=== PATIENT | female | born 2005 | race Hispanic/Latino ===

== ENCOUNTER 2025-02-28 10:06 | Emergency (ER) | payer OTHER ==
--- OUTSIDE RECORDS SUMMARY | 2025-02-28 10:14 | XMS REPORT | Continuity of Care Document ---
Author Name Unknown Address [address] [place] [address] [facility] [place] Address [address] [place] [address] Care Team Providers Care Loom Operator Name Role Phone Rowan Berry Primary Care Physicia n Doctor Unassigned, Hooven Attending Clinician U DORI Tenorio Attending Clinician Unavailable DORI VILLARREAL Attending Clinician Unavailable YULISA AL Attending Clinician Unavailable YULISA AL Attending Clinician Unavailable Yulisa Al MD Attending Clinician [phone] Dori Villarreal MD Attending Clinician [phone], [facility] Attending Clinician Unavailable JANNY POPE Attending Clinician Unavailable Janny Pope DNP Attending Clinician [phone] RUEL GORMAN Attending Clinician UnavailRUEL Mathis Attending Clinician UnavailCaprice Rudolph PT Attending Clinician UnavailRuel Mathis MD Attending Clinician [phone] Rowan Berry Attending Clinician + DARNELL MIX Attending Clinician Unavailable DARNELL MIX Attending Clinician Unavailable Ultrasound, Ang-Mfm Attending Clinician Unavaila ble Darnell Mix DO Attending Clinician [phone] AMIRA WILLTET Attending Clinician UnavailAmira Arias MD Attending Clinician [phone] BIANCA BAUTISTA Attending Clinician Unavailrachana Bautista CNM, Bianca Couch Attending Clinician [phone] Akinmaty WHCNP, Rowan Umanzor Attending Clinician + ROWAN HOSKINS Attending Clinician Unavail able Lab, Ang-Rmchp Attending Clinician Unavailable Doctor Unassigned, Hooven Attending Clinician U sixtoailSTEPHANIE Lima Attending Clinician Unavailab claudio Varma RODEO PERFORMER, Stephanie Rogers Attending Clinician + LILIYA REYNA Attending Clinician Unavailable Visit, Ang-Rmchp Nurse Attending Clinician Unava esther Willett MD, Amira Babcock Attending Clinician + [phone] Sidney VO, Darnell Attending Clinician Unavailab claudio Trevizo MD, Francesco Attending Clinician + [phone] Gwendolyn HOPKINS, Alicia Attending Clinician + [phone] Caprice RN, Shahnaz Babcock Attending Clinician Unavailable Ilir Puckett RN Attending Clinician Unavai lable Only, Ang Db Test Attending Clinician Unavailabl e Unknown, Attending Attending Clinician Unavailab le UNKNOWN, ATTENDING Attending Clinician Unavailab claudio NJP, Unruly Thorpe Attending Clinician [phone] ERIC PURCELL Attending Clinician Unavail able Provider, [facility] Temp Attending Clinician Chloe vailable Eric Beaver Attending Clinician + EBHEIDI PICHARDO Attending Clinician Unavailable Green RODEO PERFORMER, Davey Attending Clinician [phone] Ebrahimarquita RODEO PERFORMERHeidi Attending Clinician [phone] UNRULY JAVED Attending Clinician Unavailabl e Risk, Sql-Pjrdn-Hd/High Attending Clinician Unav ailable Janeth WHSHAGUFTAP, Tressa Vega Attending Clinician +[phone] TRESSA FOWLER Attending Clinician Unavailabl e Ultrasound, Adc Mfm Attending Clinician Unavaila marianna Burt MD, Red Borrero Attending Clinician + Víctor Torrez MD, Schumacher Attending Clinician + DAVEY LOPEZ Attending Clinician Unavailable Provider, [facility] Attending Clinician Un available Nurse, [facility] Attending Clinician Un available ADYULISA HILL Admitting Clinician Unavailable Adum Yulisa HOPKINS Admitting Clinician [phone] AMIRA WILLETT Admitting Clinician UnavailAmira Arias MD Admitting Clinician [phone] Payers Payer Name Policy Type Policy Number Effective Date Expirati on Date Source [employer] [id number] 2021 00:00:00 Problems Condition Name Condition Details Condition Category Status Onset Date Resolution Date Last Treatment Date Treating Clinician Comments Source Liveborn infant, of rao , born in hospital by vaginal delivery Liveborn , of rao , born in hospital by vaginal delivery Disease Active 2023-11 00:00: 00 [facility] Obesity (BMI 30-39.9) Obesity (BMI 30-39.9) Disease Active 2023-1115 00:00: 00 [facility] Labor, precipitou s Labor, precipitou s Disease Active 2023-11 214 00:00: 00 [facility] Right sciatic nerve pain Right sciatic nerve pain Disease Active 07-26 00:00: 00 [facility] Maternal varicella, non-immune Maternal varicella, non-immune Disease Active 03-28 00:00: 00 [facility] History of pre-eclamp geeta in prior , currently History of pre-eclamp geeta in prior , currently Disease Active 03-27 00:00: 00 [facility] Anemia of mother in , antepartum Anemia of mother in , antepartum Disease Active 2020-11 2- 00:00: 00 [facility] Rubella non-immune status, antepartum Rubella non-immune status, antepartum Disease Active 03-24 00:00: 00 [facility] Normal in third trimester Normal in third trimester Disease Active 9- 00:00: 00 2024-08-30 00:00:00 2024-08-30 13:21:54 [facility] Back pain affecting Back pain affecting Disease Resolve d 2023-0 7-17 00:00: 00 2024-05-22 00:00:00 2024-05-22 11:52:28 [facility] Uncertain dates, antepartum Uncertain dates, antepartum Disease Resolve d 2023-0 5-23 00:00: 00 2024-04-25 00:00:00 2024-04-25 12:14:59 [facility] Cramping affecting , antepartum Cramping affecting , antepartum Disease Resolve d 2023-0 5-23 00:00: 00 2024-04-25 00:00:00 2024-04-25 12:14:44 [facility] Other general counseling and advice for contracept roya management Other general counseling and advice for contracept roya management Disease Resolve d 2022-0 2-10 00:00: 00 2024-03-27 00:00:00 2024-03-27 08:56:03 [facility] Encounter for initial prescripti on of contracept roya pills Encounter for initial prescripti on of contracept roya pills Disease Resolve d 2018-0 3-26 00:00: 00 2024-03-27 00:00:00 2024-03-27 08:56:02 [facility] Mother currently breast-fee ding Mother currently breast-fee ding Disease Resolve d 2021-0 4-07 00:00: 00 2022-12-16 00:00:00 2022-12-16 14:35:30 [facility] 39 weeks gestation of 39 weeks gestation of Disease Resolve d 2020-1 2-25 00:00: 00 2022-12-16 00:00:00 2022-12-16 14:35:21 [facility] Anemia of mother in , antepartum Anemia of mother in , antepartum Disease Resolve d 2020-1 2-09 00:00: 00 2022-12-16 00:00:00 2022-12-16 14:36:20 [facility] Lactating adenoma Lactating adenoma Disease Resolve d 2021-1 0-19 00:00: 00 2022-12-16 00:00:00 2022-12-16 14:35:23 Overview: Formattin g of this note might be different from the original. Breast biopsy 08/24/21F ollow up postpartu m [facility] Susceptibl e to varicella (non-immun e), currently Susceptibl e to varicella (non-immun e), currently Disease Resolve d 7-14 00:00: 00 2022-12-16 00:00:00 2022-12-16 14:36:15 [facility] High risk teen in third trimester High risk teen in third trimester Disease Resolve d 5-18 00:00: 00 2022-12-16 00:00:00 2022-12-16 14:35:28 [facility] Closed fracture of part of humerus Closed fracture of part of humerus Disease Resolve d 8- 00:00: 00 2021-02-09 00:00:00 2022-05-22 00:13:45 [facility] Allergies, Adverse Reactions, Alerts Allergy Name Allergy Type Status Severity Reaction(s) Onset Date Inactive Date Treating Clinician Comments Source NO KNOWN ALLERGIE S Drug Class Active [facility] Social History Social Habit Start Date Stop Date Quantity Comments Source ASSERTION 2024-02-07 00:00:00 [facility] intake 2024-05-30 00:00:00 2024-05-30 00:00:00 Current non-drinker of alcohol (finding) [facility] History of Social function 2024-03-27 00:00:00 2024-03-27 00:00:00 [facility] Exposure to SARS-CoV-2 (event) 2022-12-06 00:00:00 2022-12-16 13:58:00 Not sure [facility] Tobacco use and exposure 2022-12-16 00:00:00 2022-12-16 00:00:00 Smokeless tobacco non-user [facility] Tobacco Comment 2022-12-16 00:00:00 2022-12-16 00:00:00 No smoke exposure [facility] Alcohol intake 2021-10-20 00:00:00 2021-10-20 00:00:00 Current non-drinker of alcohol (finding) [facility] Sex assigned at 2003 00:00:00 2005 00:00:00 [facility] Smoking Status Start Date Stop Date Source Never smoked tobacco [facility] Medications Ordered Medication Name Filled Medication Name Start Date Stop Date Current Medication? Ordering Clinician Indication Dosage Frequency Signature (SIG) Comments Components Source vitamin w/FA tablet 2023-11 00:00: 00 Yes [id number] 102 1{tbl} Take 1 tablet by mouth in the morning. [facility] docusate 100 mg capsule 2023-11 00:00: 00 Yes [id number] 102 200mg Take 2 capsules by mouth once daily as needed for Constipati on. [facility] ferrous sulfate 325 mg (65 mg iron) tablet 2023-11 00:00: 00 Yes [id number] 102 325mg Take 1 tablet by mouth in the morning. [facility] ibuprofen 800 mg tablet 2023-11 00:00: 00 Yes [id number] 102 800mg Take 1 tablet by mouth every 8 (eight) hours as needed (pain). Take with food or milk. [facility] acetaminoph en 500 mg tablet 2023-11 00:00: 00 Yes [id number] 102 1000mg Take 2 tablets by mouth every 8 (eight) hours as needed for Pain. [facility] ibuprofen (IBU) tablet 600 mg 2023-11 10:08: 15 Yes 600mg 600 mg, Oral, Q6HPRN, Starting on 10/20/24 at 0408, Until Discontinu ed, Routine, Pain (scale 4-6), Alternate with [place] for pain scale 4-6 [facility] acetaminoph en (TYLENOL) tablet 650 mg 2023-11 06:08: 24 Yes 650mg 650 mg, Oral, Q8HPRN, Starting on 10/20/24 at 0008, Until Discontinu ed, Routine, Pain (scale 4-6), Alternate with ibuprofen for pain scale 4-6 [facility] HYDROcodone -acetaminop hen (NORCO 5) tablet 1 tablet 2023-11 06:07: 44 Yes 1{tbl} [facility] diphenhydrA MINE (BENADRYL) tablet 25 mg 2023-11 06:07: 44 Yes 25mg [facility] ondansetron (ZOFRAN (PF)) injection 4 mg 2023-11 06:07: 44 Yes 4mg [facility] simethicone (GAS RELIEF (SIMETHICON E)) chewable tablet 160 mg 2023-11 06:07: 44 Yes 160mg 160 mg, Oral, PC+HSPRN, Starting on 10/20/24 at 0007, Until Discontinu ed, Routine, Gas [facility] docusate (COLACE) capsule 200 mg 2023-11 06:07: 44 Yes 200mg 200 mg, Oral, QDAILYPRN, Starting on 10/20/24 at 0007, Until Discontinu ed, Routine, Constipati on [facility] magnesium hydroxide (MILK OF MAGNESIA) 400 mg/5 mL suspension 30 mL 2023-11 06:07: 44 Yes 30mL [facility] benzocaine- menthol (DERMOPLAST ) 20-0.5 % topical spray 2023-11 06:07: 44 Yes Topical, PRN, Starting on 10/20/24 at 0007, Until Discontinu ed, Routine, Perineum discomfort [facility] oxytocin (PITOCIN) 30 units in NS 500 mL IV infusion 2023-11 04:53: 20 10-20 05:11 :00 No 600mL/h 600 mL/hr, IV Infusion, PRN, PPH, Starting on 10/19/24 at 2253, For 1 dose, As instructed by physician at bedside. [facility] lactated ringers IV infusion 250 mL 2023-11 04:53: 20 10-20 06:17 :47 No 250mL at 999 mL/hr, 250 mL, IV Infusion, PRN - SEE INSTRUCTIO NS, Starting on 10/19/24 at 2253, Until 10/20/24 at 0017, Routine [facility] oxytocin (PITOCIN) injection 10 Units 2023-11 2-14 16:45: 00 10-20 05:13 :00 No 10U 10 Units, Intramuscu lar, ONCE, 1 dose, On 10/19/24 at 1045, STAT [facility] valACYclovi r (VALTREX) 500 mg tablet 2023-11 00:00: 00 10-20 00:00 :00 No [id number] 500mg Take 1 tablet by mouth in the morning and 1 tablet in the evening. [facility] ferrous sulfate 325 mg (65 mg iron) tablet 2023-11 0-09 00:00: 00 10-21 00:00 :00 No [id number] 325mg Take 1 tablet by mouth in the morning. [facility] aspirin 81 mg EC tablet 04-25 00:00: 00 10-20 00:00 :00 No [id number] 9100 81mg Take 1 tablet by mouth in the morning. [facility] vit no.124/iron /folic ( VITAMIN ORAL) 04-23 16:48: 26 04-23 00:00 :00 No [id number] Take by mouth. [facility] PNV 67-iron ps-folate no.1-dha (VITAFOL ULTRA) 29 mg iron- 1 mg-200 mg Cap 04-23 00:00: 00 10-21 00:00 :00 No [id number] 1{capsu le} Take 1 capsule by mouth in the morning. [facility] vit no.124/iron /folic ( VITAMIN ORAL) 03-27 08:51: 17 Yes [id number] Take by mouth. [facility] norethindro ne 0.35 mg tablet 4-07 00:00: 00 12-16 00:00 :00 No [id number] 1{tbl} Take 1 tablet by mouth daily. [facility] vitamin w/FA tablet 2020-11 2-27 00:00: 00 12-16 00:00 :00 No [id number] 1{tbl} Take 1 tablet by mouth daily. [facility] Immunizations Ordered Immunization Name Filled Immunization Name Date Status Comments Source TDAP 2024-08-30 00:00:00 Completed [facility] TDAP 2021-08-10 00:00:00 Completed [facility] TDAP 2021-08-10 00:00:00 Completed [facility] TDAP 2021-08-10 00:00:00 Completed [facility] TDAP 2021-08-10 00:00:00 Completed [facility] TDAP 2021-08-10 00:00:00 Completed [facility] HPV9 2019-01-16 00:00:00 Completed [facility] HPV9 2019-01-16 00:00:00 Completed [facility] HPV9 2019-01-16 00:00:00 Completed [facility] HPV9 2019-01-16 00:00:00 Completed HPV9 2019-01-16 00:00:00 Completed HPV9 2018-09-17 00:00:00 Completed [facility] HPV9 2018-09-17 00:00:00 Completed [facility] HPV9 2018-09-17 00:00:00 Completed [facility] HPV9 2018-09-17 00:00:00 Completed [facility] HPV9 2018-09-17 00:00:00 Completed [facility] HPV9 2018-07-17 00:00:00 Completed [facility] HPV9 2018-07-17 00:00:00 Completed [facility] HPV9 2018-07-17 00:00:00 Completed [facility] HPV9 2018-07-17 00:00:00 Completed [facility] HPV9 2018-07-17 00:00:00 Completed [facility] Influenza Virus Vaccine Quad Nasal 2015-08-31 00:00:00 Completed [facility] Influenza Virus Vaccine Quad Nasal 2015-08-31 00:00:00 Completed [facility] Influenza Virus Vaccine Quad Nasal 2015-08-31 00:00:00 Completed [facility] Influenza Virus Vaccine Quad Nasal (Flumist) 2015-08-31 00:00:00 Completed [facility] Influenza Virus Vaccine Quad Nasal (Flumist) 2015-08-31 00:00:00 Completed [facility] Meningococcal Polysaccharide (groups A, C, Y and W-135) conjugate vaccine (MCV4P) 2015-01-30 00:00:00 Completed [facility] TDAP 2015-01-30 00:00:00 Completed [facility] Meningococcal Polysaccharide (groups A, C, Y and W-135) conjugate vaccine (MCV4P) 2015-01-30 00:00:00 Completed [facility] TDAP 2015-01-30 00:00:00 Completed [facility] Meningococcal Polysaccharide (groups A, C, Y and W-135) conjugate vaccine (MCV4P) 2015-01-30 00:00:00 Completed [facility] TDAP 2015-01-30 00:00:00 Completed [facility] Meningococcal Polysaccharide (groups A, C, Y and W-135) conjugate vaccine (MCV4P) 2015-01-30 00:00:00 Completed TDAP 2015-01-30 00:00:00 Completed Meningococcal Polysaccharide (groups A, C, Y and W-135) conjugate vaccine (MCV4P) 2015-01-30 00:00:00 Completed TDAP 2015-01-30 00:00:00 Completed Pneumococcal 7 Conjugate, PCV7 (Prevnar7) 2007-08-20 00:00:00 Completed Pneumococcal 7 Conjugate, PCV7 (Prevnar7) 2007-08-20 00:00:00 Completed DTAP 2007 00:00:00 Completed [facility] Pneumococcal 13 Conjugate, PCV13 (Prevnar 13) 2007 00:00:00 Completed [facility] Polio (IPV/OPV) 2007 00:00:00 Completed [facility] Proquad (MMR/VARICELLA) 2007 00:00:00 Completed [facility] DTAP 2007 00:00:00 Completed [facility] Pneumococcal 13 Conjugate, PCV13 (Prevnar 13) 2007 00:00:00 Completed [facility] Polio (IPV/OPV) 2007 00:00:00 Completed [facility] Proquad (MMR/VARICELLA) 2007 00:00:00 Completed [facility] DTAP 2007 00:00:00 Completed [facility] Pneumococcal 13 Conjugate, PCV13 (Prevnar 13) 2007 00:00:00 Completed [facility] Polio (IPV/OPV) 2007 00:00:00 Completed [facility] Proquad (MMR/VARICELLA) 2007 00:00:00 Completed [facility] DTAP 2007 00:00:00 Completed Pneumococcal 13 Conjugate, PCV13 (Prevnar 13) 2007 00:00:00 Completed Polio (IPV/OPV) 2007 00:00:00 Completed Proquad (MMR/VARICELLA) 2007 00:00:00 Completed DTaP, Unspecified Formulation 2007 00:00:00 Completed IPV 2007 00:00:00 Completed DTAP 2007 00:00:00 Completed Pneumococcal 13 Conjugate, PCV13 (Prevnar 13) 2007 00:00:00 Completed Polio (IPV/OPV) 2007 00:00:00 Completed Proquad (MMR/VARICELLA) 2007 00:00:00 Completed DTaP, Unspecified Formulation 2007 00:00:00 Completed IPV 2007 00:00:00 Completed HEPATITIS A 2005-12-20 00:00:00 Completed [facility] HEPATITIS A 2005-12-20 00:00:00 Completed [facility] HEPATITIS A 2005-12-20 00:00:00 Completed [facility] HEPATITIS A 2005-12-20 00:00:00 Completed HEPATITIS A 2005-12-20 00:00:00 Completed HEPATITIS A 2005-06-02 00:00:00 Completed [facility] HEPATITIS A 2005-06-02 00:00:00 Completed [facility] HEPATITIS A 2005-06-02 00:00:00 Completed [facility] HEPATITIS A 2005-06-02 00:00:00 Completed HEPATITIS A 2005-06-02 00:00:00 Completed Varicella (varivax)(chicken pox) 2004-07-29 00:00:00 Completed Varicella (varivax)(chicken pox) 2004-07-29 00:00:00 Completed DTAP 2004-06-21 00:00:00 Completed [facility] HIB 4 Dose Schedule 2004-06-21 00:00:00 Completed [facility] MMR 2004-06-21 00:00:00 Completed [facility] Pneumococcal 13 Conjugate, PCV13 (Prevnar 13) 2004-06-21 00:00:00 Completed [facility] Polio (IPV/OPV) 2004-06-21 00:00:00 Completed [facility] DTAP 2004-06-21 00:00:00 Completed [facility] HIB 4 Dose Schedule 2004-06-21 00:00:00 Completed [facility] MMR 2004-06-21 00:00:00 Completed [facility] Pneumococcal 13 Conjugate, PCV13 (Prevnar 13) 2004-06-21 00:00:00 Completed [facility] Polio (IPV/OPV) 2004-06-21 00:00:00 Completed [facility] DTAP 2004-06-21 00:00:00 Completed [facility] HIB 4 Dose Schedule 2004-06-21 00:00:00 Completed [facility] MMR 2004-06-21 00:00:00 Completed [facility] Pneumococcal 13 Conjugate, PCV13 (Prevnar 13) 2004-06-21 00:00:00 Completed [facility] Polio (IPV/OPV) 2004-06-21 00:00:00 Completed [facility] DTAP 2004-06-21 00:00:00 Completed HIB 4 Dose Schedule 2004-06-21 00:00:00 Completed MMR 2004-06-21 00:00:00 Completed Pneumococcal 13 Conjugate, PCV13 (Prevnar 13) 2004-06-21 00:00:00 Completed Polio (IPV/OPV) 2004-06-21 00:00:00 Completed DTaP, Unspecified Formulation 2004-06-21 00:00:00 Completed Pneumococcal 7 Conjugate, PCV7 (Prevnar7) 2004-06-21 00:00:00 Completed IPV 2004-06-21 00:00:00 Completed DTAP 2004-06-21 00:00:00 Completed HIB 4 Dose Schedule 2004-06-21 00:00:00 Completed MMR 2004-06-21 00:00:00 Completed Pneumococcal 13 Conjugate, PCV13 (Prevnar 13) 2004-06-21 00:00:00 Completed Polio (IPV/OPV) 2004-06-21 00:00:00 Completed DTaP, Unspecified Formulation 2004-06-21 00:00:00 Completed Pneumococcal 7 Conjugate, PCV7 (Prevnar7) 2004-06-21 00:00:00 Completed IPV 2004-06-21 00:00:00 Completed DTAP 2003 00:00:00 Completed [facility] HIB 4 Dose Schedule 2003 00:00:00 Completed [facility] Hep B, Adol or Pedi Dosage 2003 00:00:00 Completed [facility] Pneumococcal 13 Conjugate, PCV13 (Prevnar 13) 2003 00:00:00 Completed [facility] Polio (IPV/OPV) 2003 00:00:00 Completed [facility] DTAP 2003 00:00:00 Completed [facility] HIB 4 Dose Schedule 2003 00:00:00 Completed [facility] Hep B, Adol or Pedi Dosage 2003 00:00:00 Completed [facility] Pneumococcal 13 Conjugate, PCV13 (Prevnar 13) 2003 00:00:00 Completed [facility] Polio (IPV/OPV) 2003 00:00:00 Completed [facility] DTAP 2003 00:00:00 Completed [facility] HIB 4 Dose Schedule 2003 00:00:00 Completed [facility] Hep B, Adol or Pedi Dosage 2003 00:00:00 Completed [facility] Pneumococcal 13 Conjugate, PCV13 (Prevnar 13) 2003 00:00:00 Completed [facility] Polio (IPV/OPV) 2003 00:00:00 Completed [facility] DTAP 2003 00:00:00 Completed HIB 4 Dose Schedule 2003 00:00:00 Completed Hep B, Adol or Pedi Dosage 2003 00:00:00 Completed Pneumococcal 13 Conjugate, PCV13 (Prevnar 13) 2003 00:00:00 Completed Polio (IPV/OPV) 2003 00:00:00 Completed DTaP, Unspecified Formulation 2003 00:00:00 Completed Pneumococcal 7 Conjugate, PCV7 (Prevnar7) 2003 00:00:00 Completed IPV 2003 00:00:00 Completed DTAP 2003 00:00:00 Completed HIB 4 Dose Schedule 2003 00:00:00 Completed Hep B, Adol or Pedi Dosage 2003 00:00:00 Completed Pneumococcal 13 Conjugate, PCV13 (Prevnar 13) 2003 00:00:00 Completed Polio (IPV/OPV) 2003 00:00:00 Completed DTaP, Unspecified Formulation 2003 00:00:00 Completed Pneumococcal 7 Conjugate, PCV7 (Prevnar7) 2003 00:00:00 Completed IPV 2003 00:00:00 Completed DTAP 2003 00:00:00 Completed [facility] HIB 4 Dose Schedule 2003 00:00:00 Completed [facility] Pneumococcal 13 Conjugate, PCV13 (Prevnar 13) 2003 00:00:00 Completed [facility] Polio (IPV/OPV) 2003 00:00:00 Completed [facility] DTAP 2003 00:00:00 Completed [facility] HIB 4 Dose Schedule 2003 00:00:00 Completed [facility] Pneumococcal 13 Conjugate, PCV13 (Prevnar 13) 2003 00:00:00 Completed [facility] Polio (IPV/OPV) 2003 00:00:00 Completed [facility] DTAP 2003 00:00:00 Completed [facility] HIB 4 Dose Schedule 2003 00:00:00 Completed [facility] Pneumococcal 13 Conjugate, PCV13 (Prevnar 13) 2003 00:00:00 Completed [facility] Polio (IPV/OPV) 2003 00:00:00 Completed [facility] DTAP 2003 00:00:00 Completed HIB 4 Dose Schedule 2003 00:00:00 Completed Pneumococcal 13 Conjugate, PCV13 (Prevnar 13) 2003 00:00:00 Completed Polio (IPV/OPV) 2003 00:00:00 Completed DTaP, Unspecified Formulation 2003 00:00:00 Completed Pneumococcal 7 Conjugate, PCV7 (Prevnar7) 2003 00:00:00 Completed IPV 2003 00:00:00 Completed DTAP 2003 00:00:00 Completed HIB 4 Dose Schedule 2003 00:00:00 Completed Pneumococcal 13 Conjugate, PCV13 (Prevnar 13) 2003 00:00:00 Completed Polio (IPV/OPV) 2003 00:00:00 Completed DTaP, Unspecified Formulation 2003 00:00:00 Completed Pneumococcal 7 Conjugate, PCV7 (Prevnar7) 2003 00:00:00 Completed IPV 2003 00:00:00 Completed DTAP 2003 00:00:00 Completed [facility] HIB 4 Dose Schedule 2003 00:00:00 Completed [facility] Hep B, Adol or Pedi Dosage 2003 00:00:00 Completed [facility] Pneumococcal 13 Conjugate, PCV13 (Prevnar 13) 2003 00:00:00 Completed [facility] Polio (IPV/OPV) 2003 00:00:00 Completed [facility] DTAP 2003 00:00:00 Completed [facility] HIB 4 Dose Schedule 2003 00:00:00 Completed [facility] Hep B, Adol or Pedi Dosage 2003 00:00:00 Completed [facility] Pneumococcal 13 Conjugate, PCV13 (Prevnar 13) 2003 00:00:00 Completed [facility] Polio (IPV/OPV) 2003 00:00:00 Completed [facility] DTAP 2003 00:00:00 Completed [facility] HIB 4 Dose Schedule 2003 00:00:00 Completed [facility] Hep B, Adol or Pedi Dosage 2003 00:00:00 Completed [facility] Pneumococcal 13 Conjugate, PCV13 (Prevnar 13) 2003 00:00:00 Completed [facility] Polio (IPV/OPV) 2003 00:00:00 Completed [facility] DTAP 2003 00:00:00 Completed [facility] HIB 4 Dose Schedule 2003 00:00:00 Completed Hep B, Adol or Pedi Dosage 2003 00:00:00 Completed Pneumococcal 13 Conjugate, PCV13 (Prevnar 13) 2003 00:00:00 Completed Polio (IPV/OPV) 2003 00:00:00 Completed DTaP, Unspecified Formulation 2003 00:00:00 Completed Pneumococcal 7 Conjugate, PCV7 (Prevnar7) 2003 00:00:00 Completed IPV 2003 00:00:00 Completed DTAP 2003 00:00:00 Completed [facility] HIB 4 Dose Schedule 2003 00:00:00 Completed Hep B, Adol or Pedi Dosage 2003 00:00:00 Completed Pneumococcal 13 Conjugate, PCV13 (Prevnar 13) 2003 00:00:00 Completed Polio (IPV/OPV) 2003 00:00:00 Completed DTaP, Unspecified Formulation 2003 00:00:00 Completed Pneumococcal 7 Conjugate, PCV7 (Prevnar7) 2003 00:00:00 Completed IPV 2003 00:00:00 Completed Hep B, Adol or Pedi Dosage 2003 00:00:00 Completed [facility] Hep B, Adol or Pedi Dosage 2003 00:00:00 Completed [facility] Hep B, Adol or Pedi Dosage 2003 00:00:00 Completed [facility] Hep B, Adol or Pedi Dosage 2003 00:00:00 Completed Hep B, Adol or Pedi Dosage 2003 00:00:00 Completed HIB 4 Dose Schedule Unknown Completed [facility] HEPATITIS A Unknown Completed [facility] Hep B, Adol or Pedi Dosage Unknown Completed [facility] Meningococcal Polysaccharide (groups A, C, Y and W-135) conjugate vaccine (MCV4P) Unknown Completed [facility] MMR Unknown Completed [facility] Pneumococcal 13 Conjugate, PCV13 (Prevnar 13) Unknown Completed [facility] Polio (IPV/OPV) Unknown Completed [facility] Proquad (MMR/VARICELLA) Unknown Completed [facility] TDAP Unknown Completed [facility] HPV9 Unknown Completed [facility] DTaP, Unspecified Formulation Unknown Completed [facility] Pneumococcal 7 Conjugate, PCV7 (Prevnar7) Unknown Completed [facility] IPV Unknown Completed [facility] Varicella (varivax)(chicken pox) Unknown Completed [facility] Influenza Virus Vaccine Quad Nasal (Flumist) Unknown Completed [facility] DTAP Unknown Completed [facility] HIB 4 Dose Schedule Unknown Completed [facility] HEPATITIS A Unknown Completed [facility] Hep B, Adol or Pedi Dosage Unknown Completed [facility] Meningococcal Polysaccharide (groups A, C, Y and W-135) conjugate vaccine (MCV4P) Unknown Completed [facility] MMR Unknown Completed [facility] Pneumococcal 13 Conjugate, PCV13 (Prevnar 13) Unknown Completed [facility] Polio (IPV/OPV) Unknown Completed [facility] Proquad (MMR/VARICELLA) Unknown Completed [facility] TDAP Unknown Completed [facility] HPV9 Unknown Completed [facility] DTaP, Unspecified Formulation Unknown Completed [facility] Pneumococcal 7 Conjugate, PCV7 (Prevnar7) Unknown Completed [facility] IPV Unknown Completed [facility] Varicella (varivax)(chicken pox) Unknown Completed [facility] Influenza Virus Vaccine Quad Nasal (Flumist) Unknown Completed [facility] DTAP Unknown Completed [facility] HIB 4 Dose Schedule Unknown Completed [facility] HEPATITIS A Unknown Completed [facility] Hep B, Adol or Pedi Dosage Unknown Completed [facility] Meningococcal Polysaccharide (groups A, C, Y and W-135) conjugate vaccine (MCV4P) Unknown Completed [facility] MMR Unknown Completed [facility] Pneumococcal 13 Conjugate, PCV13 (Prevnar 13) Unknown Completed [facility] Polio (IPV/OPV) Unknown Completed [facility] Proquad (MMR/VARICELLA) Unknown Completed [facility] TDAP Unknown Completed [facility] HPV9 Unknown Completed [facility] DTaP, Unspecified Formulation Unknown Completed [facility] Pneumococcal 7 Conjugate, PCV7 (Prevnar7) Unknown Completed [facility] IPV Unknown Completed [facility] Varicella (varivax)(chicken pox) Unknown Completed [facility] Influenza Virus Vaccine Quad Nasal (Flumist) Unknown Completed [facility] DTAP Unknown Completed [facility] HIB 4 Dose Schedule Unknown Completed [facility] HEPATITIS A Unknown Completed [facility] Hep B, Adol or Pedi Dosage Unknown Completed [facility] Meningococcal Polysaccharide (groups A, C, Y and W-135) conjugate vaccine (MCV4P) Unknown Completed [facility] MMR Unknown Completed [facility] Pneumococcal 13 Conjugate, PCV13 (Prevnar 13) Unknown Completed [facility] Polio (IPV/OPV) Unknown Completed [facility] Proquad (MMR/VARICELLA) Unknown Completed [facility] TDAP Unknown Completed [facility] HPV9 Unknown Completed [facility] DTaP, Unspecified Formulation Unknown Completed [facility] Pneumococcal 7 Conjugate, PCV7 (Prevnar7) Unknown Completed [facility] IPV Unknown Completed [facility] Varicella (varivax)(chicken pox) Unknown Completed [facility] Influenza Virus Vaccine Quad Nasal (Flumist) Unknown Completed [facility] DTAP Unknown Completed [facility] HIB 4 Dose Schedule Unknown Completed [facility] HEPATITIS A Unknown Completed [facility] Hep B, Adol or Pedi Dosage Unknown Completed [facility] Meningococcal Polysaccharide (groups A, C, Y and W-135) conjugate vaccine (MCV4P) Unknown Completed [facility] MMR Unknown Completed [facility] Pneumococcal 13 Conjugate, PCV13 (Prevnar 13) Unknown Completed [facility] Polio (IPV/OPV) Unknown Completed [facility] Proquad (MMR/VARICELLA) Unknown Completed [facility] TDAP Unknown Completed [facility] HPV9 Unknown Completed [facility] DTaP, Unspecified Formulation Unknown Completed [facility] Pneumococcal 7 Conjugate, PCV7 (Prevnar7) Unknown Completed [facility] IPV Unknown Completed [facility] Varicella (varivax)(chicken pox) Unknown Completed [facility] Influenza Virus Vaccine Quad Nasal (Flumist) Unknown Completed [facility] DTAP Unknown Completed [facility] HIB 4 Dose Schedule Unknown Completed [facility] HEPATITIS A Unknown Completed [facility] Hep B, Adol or Pedi Dosage Unknown Completed [facility] Meningococcal Polysaccharide (groups A, C, Y and W-135) conjugate vaccine (MCV4P) Unknown Completed [facility] MMR Unknown Completed [facility] Pneumococcal 13 Conjugate, PCV13 (Prevnar 13) Unknown Completed [facility] Polio (IPV/OPV) Unknown Completed [facility] Proquad (MMR/VARICELLA) Unknown Completed [facility] TDAP Unknown Completed [facility] HPV9 Unknown Completed [facility] DTaP, Unspecified Formulation Unknown Completed [facility] Pneumococcal 7 Conjugate, PCV7 (Prevnar7) Unknown Completed [facility] IPV Unknown Completed [facility] Varicella (varivax)(chicken pox) Unknown Completed [facility] Influenza Virus Vaccine Quad Nasal (Flumist) Unknown Completed [facility] DTAP Unknown Completed [facility] HIB 4 Dose Schedule Unknown Completed [facility] HEPATITIS A Unknown Completed [facility] Hep B, Adol or Pedi Dosage Unknown Completed [facility] Meningococcal Polysaccharide (groups A, C, Y and W-135) conjugate vaccine (MCV4P) Unknown Completed [facility] MMR Unknown Completed [facility] Pneumococcal 13 Conjugate, PCV13 (Prevnar 13) Unknown Completed [facility] Polio (IPV/OPV) Unknown Completed [facility] Proquad (MMR/VARICELLA) Unknown Completed [facility] TDAP Unknown Completed [facility] HPV9 Unknown Completed [facility] DTaP, Unspecified Formulation Unknown Completed [facility] Pneumococcal 7 Conjugate, PCV7 (Prevnar7) Unknown Completed [facility] IPV Unknown Completed [facility] Varicella (varivax)(chicken pox) Unknown Completed [facility] Influenza Virus Vaccine Quad Nasal (Flumist) Unknown Completed [facility] DTAP Unknown Completed [facility] HIB 4 Dose Schedule Unknown Completed [facility] HEPATITIS A Unknown Completed [facility] Hep B, Adol or Pedi Dosage Unknown Completed [facility] Meningococcal Polysaccharide (groups A, C, Y and W-135) conjugate vaccine (MCV4P) Unknown Completed [facility] MMR Unknown Completed [facility] Pneumococcal 13 Conjugate, PCV13 (Prevnar 13) Unknown Completed [facility] Polio (IPV/OPV) Unknown Completed [facility] Proquad (MMR/VARICELLA) Unknown Completed [facility] TDAP Unknown Completed [facility] HPV9 Unknown Completed [facility] DTaP, Unspecified Formulation Unknown Completed [facility] Pneumococcal 7 Conjugate, PCV7 (Prevnar7) Unknown Completed [facility] IPV Unknown Completed [facility] Varicella (varivax)(chicken pox) Unknown Completed [facility] Influenza Virus Vaccine Quad Nasal (Flumist) Unknown Completed [facility] DTAP Unknown Completed [facility] HIB 4 Dose Schedule Unknown Completed [facility] HEPATITIS A Unknown Completed [facility] Hep B, Adol or Pedi Dosage Unknown Completed [facility] Meningococcal Polysaccharide (groups A, C, Y and W-135) conjugate vaccine (MCV4P) Unknown Completed [facility] MMR Unknown Completed [facility] Pneumococcal 13 Conjugate, PCV13 (Prevnar 13) Unknown Completed [facility] Polio (IPV/OPV) Unknown Completed [facility] Proquad (MMR/VARICELLA) Unknown Completed [facility] TDAP Unknown Completed [facility] HPV9 Unknown Completed [facility] DTaP, Unspecified Formulation Unknown Completed [facility] Pneumococcal 7 Conjugate, PCV7 (Prevnar7) Unknown Completed [facility] IPV Unknown Completed [facility] Varicella (varivax)(chicken pox) Unknown Completed [facility] Influenza Virus Vaccine Quad Nasal (Flumist) Unknown Completed [facility] DTAP Unknown Completed [facility] HIB 4 Dose Schedule Unknown Completed [facility] HEPATITIS A Unknown Completed [facility] Hep B, Adol or Pedi Dosage Unknown Completed [facility] Meningococcal Polysaccharide (groups A, C, Y and W-135) conjugate vaccine (MCV4P) Unknown Completed [facility] MMR Unknown Completed [facility] Pneumococcal 13 Conjugate, PCV13 (Prevnar 13) Unknown Completed [facility] Polio (IPV/OPV) Unknown Completed [facility] Proquad (MMR/VARICELLA) Unknown Completed [facility] TDAP Unknown Completed [facility] HPV9 Unknown Completed [facility] DTaP, Unspecified Formulation Unknown Completed [facility] Pneumococcal 7 Conjugate, PCV7 (Prevnar7) Unknown Completed [facility] IPV Unknown Completed [facility] Varicella (varivax)(chicken pox) Unknown Completed [facility] Influenza Virus Vaccine Quad Nasal (Flumist) Unknown Completed [facility] DTAP Unknown Completed [facility] HIB 4 Dose Schedule Unknown Completed [facility] HEPATITIS A Unknown Completed [facility] Hep B, Adol or Pedi Dosage Unknown Completed [facility] Meningococcal Polysaccharide (groups A, C, Y and W-135) conjugate vaccine (MCV4P) Unknown Completed [facility] MMR Unknown Completed [facility] Pneumococcal 13 Conjugate, PCV13 (Prevnar 13) Unknown Completed [facility] Polio (IPV/OPV) Unknown Completed [facility] Proquad (MMR/VARICELLA) Unknown Completed [facility] TDAP Unknown Completed [facility] HPV9 Unknown Completed [facility] DTaP, Unspecified Formulation Unknown Completed [facility] Pneumococcal 7 Conjugate, PCV7 (Prevnar7) Unknown Completed [facility] IPV Unknown Completed [facility] Varicella (varivax)(chicken pox) Unknown Completed [facility] Influenza Virus Vaccine Quad Nasal (Flumist) Unknown Completed [facility] DTAP Unknown Completed [facility] HIB 4 Dose Schedule Unknown Completed [facility] HEPATITIS A Unknown Completed [facility] Hep B, Adol or Pedi Dosage Unknown Completed [facility] Meningococcal Polysaccharide (groups A, C, Y and W-135) conjugate vaccine (MCV4P) Unknown Completed [facility] MMR Unknown Completed [facility] Pneumococcal 13 Conjugate, PCV13 (Prevnar 13) Unknown Completed [facility] Polio (IPV/OPV) Unknown Completed [facility] Proquad (MMR/VARICELLA) Unknown Completed [facility] TDAP Unknown Completed [facility] HPV9 Unknown Completed [facility] DTaP, Unspecified Formulation Unknown Completed [facility] Pneumococcal 7 Conjugate, PCV7 (Prevnar7) Unknown Completed [facility] IPV Unknown Completed [facility] Varicella (varivax)(chicken pox) Unknown Completed [facility] Influenza Virus Vaccine Quad Nasal (Flumist) Unknown Completed [facility] DTAP Unknown Completed [facility] HIB 4 Dose Schedule Unknown Completed [facility] HEPATITIS A Unknown Completed [facility] Hep B, Adol or Pedi Dosage Unknown Completed [facility] Meningococcal Polysaccharide (groups A, C, Y and W-135) conjugate vaccine (MCV4P) Unknown Completed [facility] MMR Unknown Completed [facility] Pneumococcal 13 Conjugate, PCV13 (Prevnar 13) Unknown Completed [facility] Polio (IPV/OPV) Unknown Completed [facility] Proquad (MMR/VARICELLA) Unknown Completed [facility] TDAP Unknown Completed [facility] HPV9 Unknown Completed [facility] Influenza Virus Vaccine Quad Nasal (Flumist) Unknown Completed [facility] DTAP Unknown Completed [facility] HIB 4 Dose Schedule Unknown Completed [facility] HEPATITIS A Unknown Completed [facility] Hep B, Adol or Pedi Dosage Unknown Completed [facility] Meningococcal Polysaccharide (groups A, C, Y and W-135) conjugate vaccine (MCV4P) Unknown Completed [facility] MMR Unknown Completed [facility] Pneumococcal 13 Conjugate, PCV13 (Prevnar 13) Unknown Completed [facility] Polio (IPV/OPV) Unknown Completed [facility] Proquad (MMR/VARICELLA) Unknown Completed [facility] TDAP Unknown Completed [facility] HPV9 Unknown Completed [facility] Influenza Virus Vaccine Quad Nasal (Flumist) Unknown Completed [facility] Meningococcal Polysaccharide (groups A, C, Y and W-135) conjugate vaccine (MCV4P) Unknown Completed [facility] MMR Unknown Completed [facility] Proquad (MMR/VARICELLA) Unknown Completed [facility] Varicella (varivax)(chicken pox) Unknown Completed [facility] DTAP Unknown Completed [facility] HIB 4 Dose Schedule Unknown Completed [facility] HEPATITIS A Unknown Completed [facility] Hep B, Adol or Pedi Dosage Unknown Completed [facility] Pneumococcal 13 Conjugate, PCV13 (Prevnar 13) Unknown Completed [facility] Polio (IPV/OPV) Unknown Completed [facility] TDAP Unknown Completed [facility] HPV9 Unknown Completed [facility] DTaP, Unspecified Formulation Unknown Completed [facility] Pneumococcal 7 Conjugate, PCV7 (Prevnar7) Unknown Completed [facility] IPV Unknown Completed [facility] Influenza Virus Vaccine Quad Nasal (Flumist) Unknown Completed [facility] Meningococcal Polysaccharide (groups A, C, Y and W-135) conjugate vaccine (MCV4P) Unknown Completed [facility] MMR Unknown Completed [facility] Proquad (MMR/VARICELLA) Unknown Completed [facility] Varicella (varivax)(chicken pox) Unknown Completed [facility] DTAP Unknown Completed [facility] HIB 4 Dose Schedule Unknown Completed [facility] HEPATITIS A Unknown Completed [facility] Hep B, Adol or Pedi Dosage Unknown Completed [facility] Pneumococcal 13 Conjugate, PCV13 (Prevnar 13) Unknown Completed [facility] Polio (IPV/OPV) Unknown Completed [facility] TDAP Unknown Completed [facility] HPV9 Unknown Completed [facility] DTaP, Unspecified Formulation Unknown Completed [facility] Pneumococcal 7 Conjugate, PCV7 (Prevnar7) Unknown Completed [facility] IPV Unknown Completed [facility] Influenza Virus Vaccine Quad Nasal (Flumist) Unknown Completed [facility] DTAP Unknown Completed [facility] HIB 4 Dose Schedule Unknown Completed [facility] HEPATITIS A Unknown Completed [facility] Hep B, Adol or Pedi Dosage Unknown Completed [facility] Meningococcal Polysaccharide (groups A, C, Y and W-135) conjugate vaccine (MCV4P) Unknown Completed [facility] MMR Unknown Completed [facility] Pneumococcal 13 Conjugate, PCV13 (Prevnar 13) Unknown Completed [facility] Polio (IPV/OPV) Unknown Completed [facility] Proquad (MMR/VARICELLA) Unknown Completed [facility] TDAP Unknown Completed [facility] HPV9 Unknown Completed [facility] DTaP, Unspecified Formulation Unknown Completed [facility] Pneumococcal 7 Conjugate, PCV7 (Prevnar7) Unknown Completed [facility] IPV Unknown Completed [facility] Varicella (varivax)(chicken pox) Unknown Completed [facility] Influenza Virus Vaccine Quad Nasal (Flumist) Unknown Completed [facility] DTAP Unknown Completed [facility] Vital Signs Vital Name Observation Time Observation Value Comments S ource Systolic blood pressure 2024-10-21 09:00:00 114 mm[Hg] [facility] Diastolic blood pressure 2024-10-21 09:00:00 61 mm[Hg] [facility] Heart rate 2024-10-21 09:00:00 71 /min [facility] Body temperature 2024-10-21 09:00:00 36.78 Ofe [facility] Respiratory rate 2024-10-21 09:00:00 18 /min [facility] Oxygen saturation in Arterial blood by Pulse oximetry 2024-10-21 09:00:00 100 /min [facility] Body height 2024-10-20 05:20:00 157.5 cm [facility] Body weight 2024-10-20 05:20:00 76.658 kg [facility] BMI 2024-10-20 05:20:00 30.91 kg/m2 [facility] Systolic blood pressure 2024-10-14 15:32:00 120 mm[Hg] [facility] Diastolic blood pressure 2024-10-14 15:32:00 70 mm[Hg] [facility] Heart rate 2024-10-14 15:32:00 73 /min [facility] Body temperature 2024-10-14 15:32:00 36.33 Ofe [facility] Body height 2024-10-14 15:32:00 157.5 [facility] 2024-10-14 15:32:00 76.295 kg [facility] BMI 2024-10-14 15:32:00 30.76 kg/m2 [facility] Systolic blood pressure 2024-10-07 20:35:00 107 mm[Hg] [facility] Diastolic blood pressure 2024-10-07 20:35:00 75 mm[Hg] [facility] hospital Heart rate 2024-10-07 20:35:00 69 /min [facility] Body temperature 2024-10-07 20:35:00 36.83 Ofe [facility] Body height 2024-10-07 20:35:00 157.5 cm [facility] Body weight 2024-10-07 20:35:00 75.751 kg [facility] BMI 2024-10-07 20:35:00 30.54 kg/m2 [facility] Systolic blood pressure 2024-09-23 14:52:00 109 mm[Hg] [facility] Diastolic blood pressure 2024-09-23 14:52:00 69 mm[Hg] [facility] Heart rate 2024-09-23 14:52:00 77 /min [facility] Body temperature 2024-09-23 14:52:00 36.78 Ofe [facility] Respiratory rate 2024-09-23 14:52:00 16 /min [facility] Body height 2024-09-23 14:52:00 157.5 cm [facility] Body weight 2024-09-23 14:52:00 74.526 kg [facility] BMI 2024-09-23 14:52:00 30.05 kg/m2 [facility] Systolic blood pressure 2024-09-09 21:09:00 105 mm[Hg] General acute hospital Diastolic blood pressure 2024-09-09 21:09:00 64 mm[Hg] [facility] Heart rate 2024-09-09 21:09:00 88 /min [facility] Body height 2024-09-09 21:09:00 157.5 cm [facility] Body weight 2024-09-09 21:09:00 72.213 kg [facility] BMI 2024-09-09 21:09:00 29.12 kg/m2 [facility] Systolic blood pressure 2024-08-30 14:35:00 111 mm[Hg] General acute hospital Diastolic blood pressure 2024-08-30 14:35:00 70 mm[Hg] General acute hospital Heart rate 2024-08-30 14:35:00 79 /min Unive [facility] Body temperature 2024-08-30 14:35:00 36.78 Ofe [facility] Respiratory rate 2024-08-30 14:35:00 18 /min [facility] Body height 2024-08-30 14:35:00 157.5 cm [facility] Body weight 2024-08-30 14:35:00 70.308 kg [facility] BMI 2024-08-30 14:35:00 28.35 kg/m2 [facility] Systolic blood pressure 2024-07-26 20:39:00 98 mm[Hg] General acute hospital Diastolic blood pressure 2024-07-26 20:39:00 64 mm[Hg] General acute hospital Heart rate 2024-07-26 20:39:00 85 /min [facility] Body height 2024-07-26 20:39:00 157.5 cm [facility] Body weight 2024-07-26 20:39:00 69.219 kg [facility] BMI 2024-07-26 20:39:00 27.91 kg/m2 [facility] Systolic blood pressure 2024-06-26 21:08:00 111 mm[Hg] General acute hospital Diastolic blood pressure 2024-06-26 21:08:00 67 mm[Hg] General acute hospital Heart rate 2024-06-26 21:08:00 91 /min Un[facility] Body temperature 2024-06-26 21:08:00 36.89 Ofe [facility] Respiratory rate 2024-06-26 21:08:00 18 /min [facility] Body height 2024-06-26 21:08:00 157.5 cm [facility] Body weight 2024-06-26 21:08:00 65.953 kg [facility] BMI 2024-06-26 21:08:00 26.59 kg/m2 [facility] Systolic blood pressure 2024-05-30 20:00:00 117 mm[Hg] General acute hospital Diastolic blood pressure 2024-05-30 20:00:00 75 mm[Hg] General acute hospital Heart rate 2024-05-30 20:00:00 71 /min [facility] Body temperature 2024-05-30 20:00:00 36.67 Ofe [facility] Respiratory rate 2024-05-30 20:00:00 18 /min [facility] Body height 2024-05-30 20:00:00 157.5 cm [facility] Body weight 2024-05-30 20:00:00 63.141 kg [facility] BMI 2024-05-30 20:00:00 25.46 kg/m2 [facility] Systolic blood pressure 2024-05-21 20:01:00 109 mm[Hg] General acute hospital Diastolic blood pressure 2024-05-21 20:01:00 68 mm[Hg] General acute hospital Heart rate 2024-05-21 20:01:00 80 /min Unive [facility] Body temperature 2024-05-21 20:01:00 36.28 Ofe [facility] Respiratory rate 2024-05-21 20:01:00 18 /min [facility] Body height 2024-05-21 20:01:00 157.5 cm [facility] Body weight 2024-05-21 20:01:00 63.078 kg [facility] BMI 2024-05-21 20:01:00 25.43 kg/m2 [facility] Systolic blood pressure 2024-04-23 21:22:00 112 mm[Hg] [place] [facility] Diastolic blood pressure 2024-04-23 21:22:00 68 mm[Hg] General acute hospital Heart rate 2024-04-23 21:22:00 83 /min Un[facility] Body temperature 2024-04-23 21:22:00 36.22 Ofe [facility] Respiratory rate 2024-04-23 21:22:00 18 /min [facility] Body height 2024-04-23 21:22:00 157.5 cm [facility] Body weight 2024-04-23 21:22:00 61.462 kg [facility] BMI 2024-04-23 21:22:00 24.78 kg/m2 [facility] Systolic blood pressure 2024-03-27 13:40:00 115 mm[Hg] General acute hospital Diastolic blood pressure 2024-03-27 13:40:00 69 mm[Hg] General acute hospital Heart rate 2024-03-27 13:40:00 77 /min Un[facility] Body temperature 2024-03-27 13:40:00 36.39 Ofe [facility] Respiratory rate 2024-03-27 13:40:00 18 /min [facility] Body height 2024-03-27 13:40:00 157.5 cm [facility] Body weight 2024-03-27 13:40:00 60.464 kg [facility] BMI 2024-03-27 13:40:00 24.38 kg/m2 [facility] Systolic blood pressure 2022-12-16 19:58:00 119 mm[Hg] General acute hospital Diastolic blood pressure 2022-12-16 19:58:00 77 mm[Hg] General acute hospital Heart rate 2022-12-16 19:58:00 77 /min Un[facility] Body temperature 2022-12-16 19:58:00 36.39 Ofe [facility] Respiratory rate 2022-12-16 19:58:00 18 /min [facility] Body height 2022-12-16 19:58:00 157.5 cm [facility] Body weight 2022-12-16 19:58:00 55.974 kg [facility] BMI 2022-12-16 19:58:00 22.57 kg/m2 [facility] Systolic blood pressure 2022-02-10 14:26:00 113 mm[Hg] General acute hospital Diastolic blood pressure 2022-02-10 14:26:00 69 mm[Hg] General acute hospital Heart rate 2022-02-10 14:26:00 59 /min Unive [facility] Body temperature 2022-02-10 14:26:00 36.22 Ofe [facility] Respiratory rate 2022-02-10 14:26:00 16 /min [facility] Body height 2022-02-10 14:26:00 157.5 cm [facility] Body weight 2022-02-10 14:26:00 59.875 kg [facility] BMI 2022-02-10 14:26:00 24.14 kg/m2 [facility] Body mass index (BMI) [Percentile] Per age and sex 2022-02-10 14:26:00 75.51 % General acute hospital Procedures Procedure Date / Time Performed Performing Clinicia n Source CBC WITH DIFF 2024-10-21 10:13:00 Adum, Yulisa Aguilar [facility] CBC WITH DIFF 2024-10-20 05:02:00 Adum, [facility] HEPATITIS B SURFACE ANTIGEN 2024-10-20 05:02:00 Adum, Yulisa Vega [facility] HB ABO GROUPING 2024-10-20 05:02:00 Adum, [facility] ADC OR PHYLLIS ONLY - RPR 2024-10-20 05:02:00 Adum, Yulisa Vega [facility] HIV 1/2 AG-AB WITH REFLEX 2024-10-20 05:02:00 AdYulisa hill [facility] POCT URINALYSIS W/O SPECIFIC GRAVITY 2024-10-14 00:00:00 Dori Villarreal [facility] 1 HR GLUCOSE TOLERANCE TEST 2024-10-09 15:44:00 Janny Pope [facility] GLUCOSE FASTING 2024-10-09 14:46:00 Janny Pope [facility] CBC WITH DIFF 2024-10-09 14:46:00 Dori Villarreal [facility] DSU PRE-OP 2024-10-08 13:32:13 Doctor Unass igned, Hooven [facility] >14 WEEKS US LIMITED 2024-10-07 20:43:25 Dori Villarreal [facility] POCT URINALYSIS W/O SPECIFIC GRAVITY 2024-10-07 00:00:00 Dori Villarreal [facility] POCT URINALYSIS W/O SPECIFIC GRAVITY 2024-09-23 14:53:00 Janny Pope [facility] POCT URINALYSIS W/O SPECIFIC GRAVITY 2024-09-09 00:00:00 Dori Villarreal [facility] TDAP VACCINE, >11 YRS, IM 2024-08-30 16:07:03 Janny Pope [facility] POCT URINALYSIS W/O SPECIFIC GRAVITY 2024-08-30 14:40:00 Janny Pope [facility] POCT URINALYSIS W/O SPECIFIC GRAVITY 2024-07-26 00:00:00 Dori Villarreal [facility] POCT URINALYSIS W/O SPECIFIC GRAVITY 2024-07-26 00:00:00 Dori Villarreal [facility] SECOND AND THIRD TRIMESTER ULTRASOUND 2024-07-19 13:59:00 Rowan Hoskins [facility] POCT URINALYSIS W/O SPECIFIC GRAVITY 2024-06-26 00:00:00 Janny Pope [facility] SECOND AND THIRD TRIMESTER ULTRASOUND 2024-06-13 20:02:00 Rowan Hoskins [facility] SCANNED LAB RESULTS 2024-06-07 17:23:09 Doctor Pallavi almaguer, Hooven [facility] POCT URINALYSIS W/O SPECIFIC GRAVITY 2024-05-30 00:00:00 Dori Villarreal [facility] POCT URINALYSIS 2024-05-21 21:44:00 Bianca Bautista [facility] ALPHA FETOPROTEIN-MATERNAL SER 2024-05-21 20:40:00 Bianca Bautista [facility] POCT URINALYSIS 2024-04-23 21:24:00 Bianca Bautista [facility] SECOND AND THIRD TRIMESTER ULTRASOUND 2024-04-22 20:13:00 Rowan Hoskins [facility] COMP. METABOLIC PANEL (59138) 2024-03-27 14:35:00 Bianca Bautista [facility] CBC WITH DIFF 2024-03-27 14:35:00 Bianca Bautista [facility] HEPATITIS B SURFACE ANTIGEN 2024-03-27 14:35:00 Bianca Bautista [facility] HCV ANTIBODY 2024-03-27 14:35:00 [facility] 2024-03-27 14:35:00 Bianca Bautista [facility] HIV 1/2 AG-AB WITH REFLEX 2024-03-27 14:35:00 Bianca Bautista [facility] POCT URINALYSIS W/O SPECIFIC GRAVITY 2024-03-27 14:26:00 Bianca Bautista [facility] POCT TEST 2024-03-27 14:25:00 Sheron Bautista [facility] POCT TEST 2022-12-16 20:05:00 Bill Hoskins [facility] ASSIGNMENT OF BENEFITS 2022-12-16 19:44:25 Docto r Unassigned, Hooven [facility] POCT TEST 2022-02-10 14:28:00 Lauro Varma [facility] Encounters Start Date/Time End Date/Time Encounter Type Admission Type Attending [facility] Care Facility Care Department Encounter ID Source 2024-06-07 00:00:00 2024-12-21 07:12:16 Orders Only Doctor Unassigned, [place] Doctor Unassigned, Hooven [facility] 1.2.840.114 350.1.13.10 4.2.7.2.686 [id number] [facility] 2024-10-08 00:00:00 2024-12-21 06:32:26 Orders Only Doctor Unassigned, [place] Doctor Unassigned, Hooven [facility] 1..840.114 350.1.13.10 4.2.7.2.686 [id number] [facility] 2024-12-06 09:45:00 2024-12-06 09:45:00 Outpatient DORI ATWOOD VIEN [facility] [id number] [facility] 2024-10-25 10:30:00 2024-10-25 10:30:00 Outpatient DORI ATWOOD VIEN [facility] [id number] [facility] 2024-10-19 22:31:00 2024-10-21 12:10:00 Inpatient P ADYULISA HILL VIVIAN OHH[facility]UNG [id number] [facility] 2024-10-19 22:31:00 2024-10-21 12:10:00 Hospital Encounter Yulisa Al L [facility] 1..840.114 350.1.13.10 4.2.7.2.686 [id number] [facility] 2024-10-14 09:30:00 2024-10-14 09:57:39 Outpatient DORI ATWOOD VIEN [facility] [id number] [facility] 2024-10-14 09:30:00 2024-10-14 09:57:39 Routine Visit Dori Villarreal [facility] 1.2.840.114 350.1.13.10 4.2.7.2.686 [id number] [facility] 2024-10-09 08:00:00 2024-10-09 08:15:00 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 Visit 2, Adc Lab Dori Villarreal 2, Adc Lab [facility] 1.2.840.114 350.1.13.10 4.2.7.2.686 [id number] [facility] 2024-10-09 08:00:00 2024-10-09 08:00:00 Outpatient R VILLARREALCEDRICKSILVERIO VILLARREAL [facility] [id number] [facility] 2024-10-07 14:15:00 2024-10-07 14:50:47 Outpatient R DORI VILLARREAL [facility] [id number] [facility] 2024-10-07 14:15:00 2024-10-07 14:50:47 Routine Visit Dori Villarreal [facility] 1.2.840.114 350.1.13.10 4.2.7.2.686 [id number] [facility] 2024-09-23 08:30:00 2024-09-23 09:30:56 Outpatient R JANNY POPE [facility] [id number] [facility] 2024-09-23 08:30:00 2024-09-23 09:30:56 Routine Visit Janny Pope [facility] 1.2.840.114 350.1.13.10 4.2.7.2.686 [id number] 134 [id number] [facility] 2024-08-16 00:00:00 2024-09-21 18:24:51 Patient Secure Msg Doctor Unassigned, [place] Doctor Unassigned, Hooven [facility] 1.2.840.114 350.1.13.10 4.2.7.2.686 [id number] [facility] 2024-09-16 07:30:00 2024-09-16 07:30:00 Outpatient R [facility] [id number] [facility] 2024-09-11 08:00:00 2024-09-11 09:11:54 Outpatient R RUEL GORMAN CRAIG [facility] [id number] [facility] 2024-09-11 08:00:00 2024-09-11 09:11:54 Ancillary Visit Caprice Serna Craig L Johanson Cap[facility] 1.2.840.114 350.1.13.10 4.2.7.2.686 [id number] [facility] 2024-09-09 15:00:00 2024-09-09 15:23:54 Outpatient R DORI VILLARREAL VIEN [facility] [id number] [facility] 2024-09-09 15:00:00 2024-09-09 15:23:54 Routine Visit [facility] 1.2.840.114 350.1.13.10 4.2.7.2.686 [id number] [facility] 2024-09-09 08:15:00 2024-09-09 08:15:00 Outpatient R DORI VILLARREAL VIEN [facility] [id number] [facility] 2024-09-04 08:45:00 2024-09-04 08:45:00 Outpatient R [facility] [id number] [facility] 2024-09-04 08:00:00 2024-09-04 08:00:00 Outpatient R RUEL GORMAN CRAIG [facility] [id number] [facility] 2024-08-30 09:15:00 2024-08-30 10:17:12 Outpatient R JANNY POPE [facility] [id number] [facility] 2024-08-30 09:15:00 2024-08-30 10:17:12 Routine Visit Janny Pope [facility] 1.840.114 350.1.13.10 4.2.7.2.686 [id number] [facility] 2024-08-28 08:45:00 2024-08-28 09:32:44 Ancillary Visit Caprice Serna Craig L Johanson, [facility] 1.84.114 350.1.13.10 4.2.7.2.686 [id number] [facility] 2024-08-23 16:00:00 2024-08-23 16:00:00 Outpatient R JANNY POPE [facility] [id number] [facility] 2024-08-14 14:30:00 2024-08-14 16:18:12 Ancillary Visit Caprice Serna Craig L Johanson, [facility] 1.840.114 350.1.13.10 4.2.7.2.686 [id number] [facility] 2024-08-14 00:00:00 2024-08-14 12:35:30 Case Management Janny Pope [facility] 1.840.114 350.1.13.10 4.2.7.2.686 [id number] [facility] 2024-08-14 08:00:00 2024-08-14 08:15:00 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 Visit 2, Adc Lab Dori Villarreal 2, Adc Lab [facility] 1.84.114 350.1.13.10 4.2.7.2.686 [id number] [facility] 2024-08-14 08:00:00 2024-08-14 08:00:00 Outpatient R DORI VILLARREAL VIEN [facility] [id number] [facility] 2024-08-09 08:00:00 2024-08-09 08:00:00 Outpatient R [facility] [id number] [facility] 2024-07-31 15:15:00 2024-07-31 15:59:46 Outpatient R RUEL GORMAN CRAIG [facility] [id number] [facility] 2024-07-31 15:15:00 2024-07-31 15:59:46 Ancillary Visit Caprice Serna Craig L Johanson, Dara [facility] 1..840.114 350.1.13.10 4.2.7.2.686 [id number] [facility] 2024-07-26 15:00:00 2024-07-26 15:55:47 Outpatient R DORI VILLARREAL VIEN [facility] [id number] [facility] 2024-07-26 15:00:00 2024-07-26 15:55:47 Routine Visit Dori Villarreal Kim [facility] 1.2.840.114 350.1.13.10 4.2.7.2.686 [id number] [facility] 2024-07-26 15:15:00 2024-07-26 15:15:00 Outpatient R DORI VILLARREAL DORI [facility] [id number] [facility] 2024-07-25 00:00:00 2024-07-25 12:47:00 Abstract Rowan Hoskins [facility] OUT[employer] SALES CONSULTANT [facility] 1..840.114 350.1.13.10 4.2.7.2.686 [id number] [facility] 2024-07-19 08:00:00 2024-07-19 08:57:29 Outpatient R BONILLA MIXAmerica ARZOLAMARIA DEL ROSARIO DARNELL [facility] [id number] [facility] 2024-07-19 08:00:00 2024-07-19 08:57:29 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 Visit Ultrasound, Calvin Mix Darnell [facility] OUT[employer] SALES CONSULTANT [facility] 1.840.114 350.1.13.10 4.2.7.2.686 [id number] [facility] 2024-06-26 16:15:00 2024-06-26 16:29:40 Outpatient R JANNY POPE [facility] [id number] [facility] 2024-06-26 16:15:00 2024-06-26 16:29:40 Routine Visit Janny Pope [facility] .840.114 350.1.13.10 4.2.7.2.686 [id number] [facility] 2024-06-19 00:00:00 2024-06-19 08:03:14 Abstract Rowan Hoskins [facility] OUT[employer] SALES CONSULTANT [facility] .840.114 350.1.13.10 4.2.7.2.686 [id number] [facility] 2024-06-13 14:00:00 2024-06-13 15:05:50 Outpatient AMIRA CASTELLANOS [facility] [id number] [facility] 2024-06-13 14:00:00 2024-06-13 15:05:50 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 Visit Ultrasound, Amira Pedro [facility] [employer] SALES CONSULTANT [facility] .840.114 350.1.13.10 4.2.7.2.686 [id number] [facility] 2024-05-30 14:30:00 2024-05-30 15:27:29 Outpatient R DORI VILLARREAL VIEN [facility] [id number] [facility] 2024-05-30 14:30:00 2024-05-30 15:27:29 Initial Visit Dori Villarreal [facility] 1.2.840.114 350.1.13.10 4.2.7.2.686 [id number] [facility] 2024-05-21 15:00:00 2024-05-21 15:40:23 [facility] [id number] 2024-05-21 15:00:00 2024-05-21 15:40:23 Routine Visit Bianca Bautista [facility] OUT[employer] SALES CONSULTANT [facility] 1..840.114 350.1.13.10 4.2.7.2.686 [id number] [facility] 2024-04-30 00:00:00 2024-05-02 09:12:43 Telephone Dori Villarreal [facility] 1.2.840.114 350.1.13.10 4.2.7.2.686 [id number] [facility] 2024-04-25 00:00:00 2024-04-25 14:07:04 Abstract Rowan Hoskins [facility] [employer] SALES CONSULTANT [facility] 1.2.840.114 350.1.13.10 4.2.7.2.686 [id number] [facility] 2024-04-23 16:15:00 2024-04-23 16:48:01 Outpatient BIANCA CONTEH [facility] [id number] [facility] 2024-04-23 16:15:00 2024-04-23 16:48:01 Routine Visit Bianca Bautista [facility] [employer]ES CONSULTANT [facility] 1..840.114 350.1.13.10 4.2.7.2.686 [id number] [facility] 2024-04-22 14:45:00 2024-04-22 15:13:38 Outpatient P BIANCA BAUTISTA [facility] [id number] [facility] 2024-04-22 14:45:00 2024-04-22 15:13:38 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 Visit Ultrasound, MarciaBianca Sams [facility] [employer] SALES CONSULTANT [facility] 1..840.114 350.1.13.10 4.2.7.2.686 [id number] [facility] 2024-04-12 08:45:00 2024-04-12 10:30:15 Outpatient R ROWAN HOSKINS [facility] [id number] [facility] 2024-04-12 08:45:00 2024-04-12 10:30:15 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 Visit Lab, Nolan-Rmchp Rowan Hoskins [facility] [employer]ES CONSULTANT [facility] ..840.114 350.1.13.10 4.2.7.2.686 [id number] [facility] 2024-04-10 00:00:00 2024-04-10 14:49:33 Telephone Rowan Hoskins [facility] OUT[employer] SALES CONSULTANT [facility] .840.114 350.1.13.10 4.2.7.2.686 [id number] [facility] 2024-03-27 08:30:00 2024-03-27 09:35:06 Outpatient R BIANCA BAUTISTA [facility] [id number] [facility] 2024-03-27 08:30:00 2024-03-27 09:35:06 Initial Visit Bianca Bautista [facility] OUT[employer] SALES CONSULTANT [facility] 1.2.840.114 350.1.13.10 4.2.7.2.686 [id number] [facility] 2024-03-25 14:30:00 2024-03-25 14:30:00 Outpatient R DORI VILLARREAL [facility] [id number] [facility] 2023-01-05 14:00:00 2023-01-05 14:00:00 Outpatient R ROWAN HOSKINS [facility] [id number] [facility] 2022-12-16 13:45:00 2022-12-16 14:51:17 Outpatient R ROWAN HOSKINS [facility] [id number] [facility] 2022-12-16 13:45:00 2022-12-16 14:00:00 Office Visit Rowan Hoskins [facility] OUTBOUND SALES CONSULTANT [facility] 1.2.840.114 350.1.13.10 4.2.7.2.686 [id number] 107 [id number] [facility] 2022-12-16 00:00:00 2022-12-16 00:00:00 Orders Only Doctor Unassigned, [place] [facility] 1..840.114 350.1.13.10 4.2.7.2.686 [id number] [facility] 2022-12-15 15:00:00 2022-12-15 15:00:00 Outpatient STEPHANIE LEDESMA [facility] [id number] [facility] 2022-12-15 15:00:00 2022-12-15 15:00:00 Outpatient STEPHANIE LEDESMA [facility] [id number] [facility] 2022-12-15 13:00:00 2022-12-15 13:00:00 Outpatient R ROWAN HOSKINS [facility] [id number] [facility] 2022-05-12 09:45:00 2022-05-12 09:45:00 Outpatient R VARMASTEPHANIE [facility] [id number] [facility] 2022-02-10 09:00:00 2022-02-10 10:00:32 Outpatient R STEPHANIE VARMA [facility] [id number] [facility] 2022-02-10 09:00:00 2022-02-10 10:00:32 Office Visit Stephanie Varma [facility] OUTBOUND SALES CONSULTANT [facility] ..840.114 350.1.13.10 4.2.7.2.686 [id number] 107 [id number] [facility] 2022-01-20 10:00:00 2022-01-20 10:00:00 Outpatient R LILIYA REYNA [facility] [id number] [facility] 2021-12-15 15:00:00 2021-12-15 15:49:23 Outpatient STEPHANIE LEDESMA [facility] [id number] [facility] 2021-12-15 15:00:00 2021-12-15 15:49:23 Office Visit Stephanie Varma [facility] OUTBOUND SALES CONSULTANT [facility] ..840.114 350.1.13.10 4.2.7.2.686 [id number] 107 [id number] [facility] 2021-12-14 00:00:00 2021-12-14 00:00:00 Patient Secure Msg Doctor Unassigned, [place] [facility] OUTBOUND SALES CONSULTANT [facility] ..840.114 350.1.13.10 4.2.7.2.686 [id number] 107 [id number] [facility] 2021-11-23 10:30:00 2021-11-23 11:11:01 Outpatient STEPHANIE LEDESMA [facility] [id number] [facility] 2021-11-23 10:30:00 2021-11-23 11:11:01 Routine Visit Stephanie Varma [facility] OUTBOUND SALES CONSULTANT [facility] 1.2.840.114 350.1.13.10 4.2.7.2.686 [id number] 107 [id number] [facility] 2021-11-08 09:15:00 2021-11-08 09:30:00 Nurse Visit Visit, Ang-Rmchp [facility] OUT[facility]OUND SALES CONSULTANT [facility] 1.840.114 350.1.13.10 4.2.7.2.686 [id number] [facility] 2021-11-08 09:15:00 2021-11-08 09:15:00 Outpatient R STEPHANIE VARMA [facility] [id number] [facility] 2021-10-30 05:29:00 2021-11-01 12:30:00 Inpatient P AMIRA WILLETT [facility] CHUNG [id number] [facility] 2021-10-30 05:29:00 2021-11-01 12:30:00 Hospital Encounter SarajeramieAmira [facility] 1.2840.114 350.1.13.10 4.2.7.2.686 [id number] [facility] 2021-10-30 05:29:00 2021-11-01 12:30:00 Inpatient P AMIRA WILLETT [facility] [id number] [facility] 2021-11-01 00:00:00 2021-11-01 00:00:00 Nurse Triage Darnell Little [facility] 1.2.840.114 350.1.13.10 4.2.7.2.686 [id number] [facility] 2021-10-30 08:41:00 2021-10-30 21:03:00 Anesthesia Event Francesco Trevizo Alicia [facility] 1..114 350.1.13.10 4.2.7.2.686 [id number] [facility] 2021-10-30 05:29:00 2021-10-30 05:29:00 Inpatient P DANIEL RAYMOND [facility] [id number] [facility] 2021-10-29 00:00:00 2021-10-29 00:00:00 Nurse Triage Caprice Shahnaz Babcock [facility] 1..114 350.1.13.10 4.2.7.2.686 [id number] [facility] 2021-10-28 15:45:00 2021-10-28 16:00:00 Routine Visit Rowan Hoskins [facility] OUTBOUND SALES CONSULTANT [facility] 1..114 350.1.13.10 4.2.7.2.686 [id number] 107 [id number] [facility] 2021-10-28 15:45:00 2021-10-28 15:45:00 Outpatient R ROWAN HOSKINS [facility] [id number] [facility] 2021-10-28 00:00:00 2021-10-28 00:00:00 Telephone Stephanie Varma [facility] OUTBOUND SALES CONSULTANT [facility] 1..114 350.1.13.10 4.2.7.2.686 [id number] 107 [id number] [facility] 2021-10-28 00:00:00 2021-10-28 00:00:00 Patient Secure Msg Doctor Unassigned, [place] [facility] OUTBOUND SALES CONSULTANT [facility] 1..114 350.1.13.10 4.2.7.2.686 [id number] 107 [id number] [facility] 2021-10-27 09:45:00 2021-10-27 09:45:00 Outpatient R STEPHANIE VARMA [facility] [id number] [facility] 2021-10-27 00:00:00 2021-10-27 00:00:00 Telephone Ilir Puckett [facility] 1.114 350.1.13.10 4.2.7.2.686 [id number] [facility] 2021-10-26 18:15:00 2021-10-26 18:30:00 Laboratory Only Only, Ang Db Test Unknown, Attending [facility] 1..114 350.1.13.10 4.2.7.2.686 [id number] 370 [id number] [facility] 2021-10-26 18:15:00 2021-10-26 18:15:00 Outpatient R UNKNOWN, ATTENDING [facility] [id number] [facility] 2021-10-26 18:15:00 2021-10-26 18:15:00 Outpatient R UNKNOWN, ATTENDING [facility] [id number] [facility] 2021-10-26 00:00:00 2021-10-26 00:00:00 Telephone Stephanie Vamra [facility] OUTBOUND SALES CONSULTANT [facility] 1.84.114 350.1.13.10 4.2.7.2.686 [id number] 107 [id number] [facility] 2021-10-20 14:45:00 2021-10-20 16:00:24 Outpatient R STEPHANIE VARMA [facility] [id number] [facility] 2021-10-20 14:45:00 2021-10-20 16:00:24 Routine Visit Stephanie Varma [facility] OUTBOUND SALES CONSULTANT [facility] 1.84.114 350.1.13.10 4.2.7.2.686 [id number] 107 [id number] [facility] 2021-10-14 00:00:00 2021-10-14 00:00:00 Telephone Unruly Javed [facility] OUTBOUND SALES CONSULTANT [facility] 1.84.114 350.1.13.10 4.2.7.2.686 [id number] 107 [id number] [facility] 2021-10-13 13:30:00 2021-10-13 14:08:58 Outpatient R ERIC PURCELL [facility] [id number] [facility] 2021-10-13 13:13:00 2021-10-13 14:08:58 Routine Visit Provider, Eric Fournier [facility] OUTBOUND SALES CONSULTANT [facility] 1.84.114 350.1.13.10 4.2.7.2.686 [id number] 107 [id number] [facility] 2021-10-07 16:40:00 2021-10-07 17:57:39 Outpatient R INOCENCIO [facility] [id number] [facility] 2021-10-07 16:21:42 2021-10-07 17:57:39 [facility] 1.840.114 350.1.13.10 4.2.7.2.686 [id number] [facility] 2021-10-07 16:00:00 2021-10-07 16:00:00 Outpatient R UNRULY JAVED [facility] [id number] [facility] 2021-09-23 13:17:36 2021-09-23 13:33:21 Routine Visit Unruly Javed [facility] OUTBOUND SALES CONSULTANT [facility] 1.840.114 350.1.13.10 4.2.7.2.686 [id number] 107 [id number] [facility] 2021-09-23 13:15:00 2021-09-23 13:33:21 Outpatient R UNRULY JAVED [facility] [id number] [facility] 2021-09-09 09:34:39 2021-09-09 11:09:31 Routine Visit Risk, Ang-Rmchp-N p/High Tressa Fowler [facility] OUTBOUND SALES CONSULTANT [facility] 1.2.840.114 350.1.13.10 4.2.7.2.686 [id number] 107 [id number] [facility] 2021-09-09 09:30:00 2021-09-09 11:09:31 Outpatient TRESSA BROWN [facility] [id number] [facility] 2021-08-26 00:00:00 2021-08-26 00:00:00 Telephone Unruly Javed [facility] OUTBOUND SALES CONSULTANT [facility] 1.2.840.114 350.1.13.10 4.2.7.2.686 [id number] 107 [id number] [facility] 2021-08-24 10:00:00 2021-08-24 23:59:00 Hospital Encounter Unruly Javed [facility] 1.2.840.114 350.1.13.10 4.2.7.2.686 [id number] [facility] 2021-08-24 12:45:17 2021-08-24 13:19:25 Routine Visit Unruly Javed [facility] OUTBOUND SALES CONSULTANT [facility] 1.2.840.114 350.1.13.10 4.2.7.2.686 [id number] 107 [id number] [facility] 2021-08-24 12:45:00 2021-08-24 12:45:00 Outpatient R UNRULY JAVED [facility] [id number] [facility] 2021-08-17 00:00:00 2021-08-17 00:00:00 Telephone Unruly Javed [facility] OUTBOUND SALES CONSULTANT [facility] 1..840.114 350.1.13.10 4.2.7.2.686 [id number] 107 [id number] [facility] 2021-08-16 14:08:56 2021-08-16 23:59:00 Hospital Encounter Unruly Javed [facility] 1..840.114 350.1.13.10 4.2.7.2.686 [id number] [facility] 2021-08-16 00:00:00 2021-08-16 00:00:00 Outpatient R UNRULY JAVED [facility] [id number] [facility] 2021-08-10 09:35:01 2021-08-10 10:36:41 Routine Visit Unruly Javed [facility] OUTBOUND SALES CONSULTANT [facility] 1..840.114 350.1.13.10 4.2.7.2.686 [id number] 107 [id number] [facility] 2021-08-10 09:30:00 2021-08-10 09:30:00 Outpatient R UNRULY JAVED [facility] [id number] [facility] 2021-07-27 10:38:23 2021-07-27 11:19:06 Routine Visit Unruly Javed [facility] OUTBOUND SALES CONSULTANT [facility] 1..840.114 350.1.13.10 4.2.7.2.686 [id number] 107 [id number] [facility] 2021-07-27 10:30:00 2021-07-27 10:30:00 Outpatient R UNRULY JAVED [facility] [id number] [facility] 2021-06-29 10:39:53 2021-06-29 11:06:15 Routine Visit Unruly Javed [facility] OUTBOUND SALES CONSULTANT [facility] 1..840.114 350.1.13.10 4.2.7.2.686 [id number] 107 [id number] [facility] 2021-06-29 10:39:53 2021-06-29 11:06:15 Routine Visit Unruly Javed [facility] OUTBOUND SALES CONSULTANT [facility] 1..840.114 350.1.13.10 4.2.7.2.686 [id number] 107 [id number] [facility] 2021-06-29 10:45:00 2021-06-29 10:45:00 Outpatient R UNRULY JAVED [facility] [id number] [facility] 2021-06-16 09:30:00 2021-06-16 09:30:00 Outpatient P [facility] [id number] [facility] 2021-06-15 08:00:00 2021-06-15 08:00:00 Outpatient R UNRULY JAVED [facility] [id number] [facility] 2021-06-10 10:14:24 2021-06-10 11:14:24 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 Visit Ultrasound, Adc Red Samson [facility] 1..840.114 350.1.13.10 4.2.7.2.686 [id number] [facility] 2021-06-10 10:00:00 2021-06-10 10:00:00 Outpatient P [facility] [id number] [facility] 2021-06-08 09:00:00 2021-06-08 09:00:00 Outpatient R UNRULY JAVED [facility] [id number] [facility] 2021-05-31 00:00:00 2021-05-31 00:00:00 Telephone Unruly Javed [facility] OUTBOUND SALES CONSULTANT [facility] 1..840.114 350.1.13.10 4.2.7.2.686 [id number] 107 [id number] [facility] 2021-05-25 00:00:00 2021-05-25 00:00:00 Orders Only Doctor Unassigned, [place]oven [facility] 1.114 350.1.13.10 4.2.7.2.686 [id number] [facility] 2021-05-18 07:56:50 2021-05-18 08:36:02 Routine Visit Unruly Javed [facility] OUTBOUND SALES CONSULTANT [facility] 1..114 350.1.13.10 4.2.7.2.686 [id number] 107 [id number] [facility] 2021-05-18 08:00:00 2021-05-18 08:00:00 Outpatient R UNRULY JAVED [facility] [id number] [facility] 2021-05-18 07:45:00 2021-05-18 07:45:00 Outpatient R UNRULY JAVED [facility] [id number] [facility] 2021-05-04 09:04:49 2021-05-04 09:34:49 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 Visit Ultrasound, Winsome Chavarria [facility] OUTBOUND SALES CONSULTANT [facility] 1..114 350.1.13.10 4.2.7.2.686 [id number] [facility] 2021-05-04 09:00:00 2021-05-04 09:00:00 Outpatient P [facility] [id number] [facility] 2021-04-27 14:45:00 2021-04-27 14:45:00 Outpatient P [facility] [id number] [facility] 2021-04-20 15:41:22 2021-04-20 16:29:42 Routine Visit Unruly Javed [facility] OUTBOUND SALES CONSULTANT [facility] 1..114 350.1.13.10 4.2.7.2.686 [id number] [facility] 2021-04-20 15:45:00 2021-04-20 15:45:00 Outpatient R UNRULY JAVED [facility] [id number] [facility] 2021-03-24 00:00:00 2021-03-24 00:00:00 Telephone Unruly Javed [facility] OUTBOUND SALES CONSULTANT [facility] 1..840.114 350.1.13.10 4.2.7.2.686 [id number] 107 [id number] [facility] 2021-03-23 14:53:14 2021-03-23 16:05:03 Initial Visit Unruly Javed [facility] OUTBOUND SALES CONSULTANT [facility] 1..840.114 350.1.13.10 4.2.7.2.686 [id number] 107 [id number] [facility] 2021-03-23 14:00:00 2021-03-23 14:00:00 Outpatient R UNRULY JAVED [facility] [id number] [facility] 2021-03-23 00:00:00 2021-03-23 00:00:00 Orders Only Doctor Unassigned, [place]oven [facility] 1..840.114 350.1.13.10 4.2.7.2.686 [id number] [facility] 2021-02-23 11:00:00 2021-02-23 11:00:00 Outpatient R [facility] [id number] [facility] 2021-02-20 11:47:49 2021-02-20 23:59:00 Hospital Encounter Davey Lopez [facility] 1..840.114 350.1.13.10 4.2.7.2.686 [id number] [facility] 2021-02-20 00:00:00 2021-02-20 23:59:00 Outpatient R DAVEY LOPEZ [facility] [id number] [facility] 2021-02-20 10:06:21 2021-02-20 10:57:06 Urgent Care Provider, [facility] Davey Lopez [facility] Office [facility] 1.2.840.114 350.1.13.10 4.2.7.2.686 [id number] [facility] 2021-02-20 10:00:00 2021-02-20 10:00:00 Outpatient R [facility] [id number] [facility] 2021-02-10 00:00:00 2021-02-10 00:00:00 Orders Only Doctor Unassigned, Hooven [facility] 1..840.114 350.1.13.10 4.2.7.2.686 [id number] [facility] 2021-02-09 15:41:10 2021-02-09 16:28:28 Office Visit Unruly Javed [facility] OUTBOUND SALES CONSULTANT [facility] 1..840.114 350.1.13.10 4.2.7.2.686 [id number] [facility] 2021-02-09 15:30:00 2021-02-09 15:30:00 Outpatient R UNRULY JAVED [facility] [id number] [facility] 2019-07-10 16:28:57 2019-07-10 16:43:57 Nurse Visit Nurse, [facility] Dori Villarreal [facility] 1.2.840.114 350.1.13.10 4.2.7.2.686 [id number] [facility] Results Test Description Test Time Test Comments Results Result Co mments Source [facility] PHYLLIS العراقي - [id number] 08:31:48* Test Item Value Reference Range Interpretation Comme nts RPR (Qualitative) (test code = 06914-7) Nonreactive Nonreactive Lab Interpretation (test cod e = 22496-2) Normal [facility] Ag-Ab with [id number] 06:33:20* Test Item Value Reference Range Interpretation Comme nts HIV Semi-quantitative (test code = 25888-7) 0.23 Negative LLOYD (test code = LLOYD) Non-reactive for HIV-1 antigen and HIV-1/HIV-2 antibodies. ?No laboratory evidence of HIV infection. ?Repeat in 2-4 weeks if acute HIV infection is suspected. [facility] with [id number] 05:30:00* Test Item Value Reference Range Interpretation Comme nts WBC (test code = 6690-2) 12.89 4.30-11.10 H RBC (test code = 789-8) 4.21 3.93-5.25 HGB (test code = 718-7) 11.1 g/dL 11.6-15.0 L HCT (test code = 4544-3) 34.7 % 35.7-45.2 L MCV (test code = 787-2) 82.4 fL 80.6-95.5 MCH (test code = 785-6) 26.4 pg 25.9-32.8 MCHC (test code = 786-4) 32.0 g/dL 31.6-35.1 RDW-SD (test code = 99266-2) 49.5 fL 39.0-49.9 RDW-CV (test code = 788-0) 17.1 % 12.0-15.5 H PLT (test code = 777-3) 328 166-358 MPV (test code = 92961-2) 9.3 fL 9.5-12.9 L NRBC/100 WBC (test code = 5364102797) 0.0 0.0-10.0 NRBC x10^3 (test code = 3027386553) See_Comment [Automated messa ge] The system which generated this result transmitted reference range: 10*3/?L. The reference range was not used to interpret this result as normal/abnormal. GRAN MAT (NEUT) % (test code = 770-8) 72.7 % IMM GRAN % (test code = 8987204346) 0.90 % LYMPH % (test code = 736-9) 20.6 % MONO % (test code = 5905-5) 4.7 % EOS % (test code = 713-8) 0.8 % BASO % (test code = 706-2) 0.3 % GRAN MAT x10^3(ANC) (test code = 3814030549) 9.38 10*3/uL 1.88-7.09 H IMM GRAN x10^3 (test code = 4452199371) 0.12 10*3/uL 0.00-0.06 H LYMPH x10^3 (test code = 731-0) 2.65 10*3/uL 1.32-3.29 MONO x10^3 (test code = 742-7) 0.60 10*3/uL 0.33-0.92 EOS x10^3 (test code = 711-2) 0.10 10*3/uL 0.03-0.39 BASO x10^3 (test code = 704-7) 0.04 10*3/uL 0.01-0.07 Lab Interpretation (test code = 47418-3) Abnormal [facility] - ONCE [id number] 05:25:00 * Test Item Value Reference Range Interpretation Comme nts ABO & RH (test code = 20) O POSITIVE IAT (test code = 1185) Negative [facility] Urinalysis w/o Specific [id number] 15:31:00* Test Item Value Reference Range Interpretation Comme nts POCT PH U (test code = 3254) n/a 5-8 POCT U LEUK EST (test code = 3263) n/a Negative - Negative POCT U NIT (test code = 3262) n/a Negative - Negati ve POCT U PROT (test code = 3259) TRACE Negative - Negat roya POCT U GLU (test code = 3256) negative Negative - Negati ve POCT U KETONE (test code = 3258) n/a Negative - Neg ative POCT U BLD (test code = 3257) n/a Negative - Negati ve [facility] CenterDS[facility] [id number] 13:32:13Ordered by an unspecified provider.[facility] w/o Specific [id number] 20:50:00* Test Item Value Reference Range Interpretation Comme nts POCT PH U (test code = 3254) n/a 5-8 POCT U LEUK EST (test code = 3263) n/a Negative - Negative POCT U NIT (test code = 3262) n/a Negative - Negati ve POCT U PROT (test code = 3259) negative Negative - Negat roya POCT U GLU (test code = 3256) negative Negative - Negati ve POCT U KETONE (test code = 3258) n/a Negative - Neg ative POCT U BLD (test code = 3257) n/a Negative - Negati ve [facility] Urinalysis w/o Specific [id number] 14:53:00* Test Item Value Reference Range Interpretation Comme nts POCT PH U (test code = 3254) na 5-8 POCT U LEUK EST (test code = 3263) na Negative - N egative POCT U NIT (test code = 3262) na Negative - Negati ve POCT U PROT (test code = 3259) neg Negative - Negat roya POCT U GLU (test code = 3256) neg Negative - Negati ve POCT U KETONE (test code = 3258) na Negative - Neg ative POCT U BLD (test code = 3257) na Negative - Negati ve Lab Interpretation (test cod e = 12169-3) Normal [facility] Urinalysis w/o Specific [id number] 21:08:00* Test Item Value Reference Range Interpretation Comme nts POCT PH U (test code = 3254) n/a 5-8 POCT U LEUK EST (test code = 3263) n/a Negative - Negative POCT U NIT (test code = 3262) n/a Negative - Negati ve POCT U PROT (test code = 3259) negative Negative - Negat roya POCT U GLU (test code = 3256) negative Negative - Negati ve POCT U KETONE (test code = 3258) n/a Negative - Neg ative POCT U BLD (test code = 3257) n/a Negative - Negati ve [facility] Urinalysis w/o Specific [id number] 14:40:00* Test Item Value Reference Range Interpretation Comme nts POCT PH U (test code = 3254) na 5-8 POCT U LEUK EST (test code = 3263) na Negative - Negative POCT U NIT (test code = 3262) na Negative - Negative POCT U PROT (test code = 3259) negative Negative - Negative POCT U GLU (test code = 3256) negative Negative - Negative POCT U KETONE (test code = 3258) na Negative - Negative POCT U BLD (test code = 3257) na Negative - Negative LLOYD (test code = LLOYD) accurate developme nt and interpretation of all internal controls Lab Interpretation (test code = 19322-9) Normal [facility] Urinalysis w/o Specific [id number] 20:37:00* Test Item Value Reference Range Interpretation Comme nts POCT PH U (test code = 3254) n/a 5-8 POCT U LEUK EST (test code = 3263) n/a Negative - Negative POCT U NIT (test code = 3262) n/a Negative - Negati ve POCT U PROT (test code = 3259) negative Negative - Negat roya POCT U GLU (test code = 3256) negative Negative - Negati ve POCT U KETONE (test code = 3258) n/a Negative - Neg ative POCT U BLD (test code = 3257) n/a Negative - Negati ve [facility] Urinalysis w/o Specific [id number] 21:06:00* Test Item Value Reference Range Interpretation Comme nts POCT PH U (test code = 3254) n/a 5-8 POCT U LEUK EST (test code = 3263) n/a Negative - Negative POCT U NIT (test code = 3262) n/a Negative - Negati ve POCT U PROT (test code = 3259) negative Negative - Negat roya POCT U GLU (test code = 3256) normal Negative - Negati ve POCT U KETONE (test code = 3258) n/a Negative - Neg ative POCT U BLD (test code = 3257) n/a Negative - Negati ve [facility] [id number] 17:23:09Ordered by an unspecified provider.[facility]o Specific [id number] 20:09:00* Test Item Value Reference Range Interpretation Comme nts POCT PH U (test code = 3254) n/a 5-8 POCT U LEUK EST (test code = 3263) n/a Negative - Negative POCT U NIT (test code = 3262) n/a Negative - Negati ve POCT U PROT (test code = 3259) negative Negative - Negat roya POCT U GLU (test code = 3256) normal Negative - Negati ve POCT U KETONE (test code = 3258) n/a Negative - Neg ative POCT U BLD (test code = 3257) n/a Negative - Negati ve [facility] CenterAL[facility]OTE[facility]ERNAL [id number] 16:48:00* Test Item Value Reference Range Interpretation Comme nts AFP-MS (test code = 6369572066) 21.2 ng/mL AFP-MS MoM (test code = 2892943183) 0.57 WEIGHT (test code = 6501731358) 139.0625 lbs RACE (test code = 1925316788) GEST. AGE (test code = 8301632493) 16,6 Gestational age reflects sample collection date. Previous preliminary verified result was 12,5 on 05/22/2024 at 1111 CDT INS. DEP (test code = 3886235208) No LMP (test code = 2710559149) US DATE (test code = 3107251212) 20240422 PE DATE (test code = 7357415929) METHOD (test code = 1792414533) US MULT GEST (test code = 1669584021) No Down Syndrome History (test code = 3123257002) No NTD HX (test code = 7695066635) No INITAL OR REPEAT (test code = 8684521914) Initial Testing SMOKER (test code = 2810244747) No RH (test code = 9104311564) Positive OSB INTERP (test code = 2086048741) See Note The maternal ser um AFP result is NOT elevated for a of thisgestational age. The risk of an open neural tube defect is less thanthe screening cut-off. OSB RSK (test code = 8367226875) 1:80671 The risk of OSB is equal to 1:41692Iaq OSB cut-off is 2.46 (1:104) OSB SCRN (test code = 9192385451) Negative [facility] URINALYSIS W SPECIFIC [id number] 21:45:00* Test Item Value Reference Range Interpretation Comme nts POCT U SP GRAV (test code = 3255) . 1.005-1.025 POCT PH U (test code = 3254) . 5-8 POCT U LEUK EST (test code = 3263) . Negative - N egative POCT U NIT (test code = 3262) . Negative - Negati ve POCT U PROT (test code = 3259) . Negative - Negat roya POCT U GLU (test code = 3256) . Negative - Negati ve POCT U KETONE (test code = 3258) . Negative - Neg ative POCT U UROBILI (test code = 3260) . 0.2-1 POCT U BILI (test code = 3261) . Negative - Negat roya POCT U BLD (test code = 3257) .. Negative - Negati ve POCT U COLOR (test code = 3266) . POCT U APPEAR (test code = 3267) [facility] URINALYSIS W SPECIFIC [id number] 21:24:00* Test Item Value Reference Range Interpretation Comme nts POCT U SP GRAV (test code = 3255) . 1.005-1.025 POCT PH U (test code = 3254) 5 mg/dl 5-8 POCT U LEUK EST (test code = 3263) Neg Negative - Negative POCT U NIT (test code = 3262) Neg Negative - Negati ve POCT U PROT (test code = 3259) Trace Negative - Negat roya POCT U GLU (test code = 3256) Nml Negative - Negati ve POCT U KETONE (test code = 3258) None Negative - Neg ative POCT U UROBILI (test code = 3260) . 0.2-1 POCT U BILI (test code = 3261) . Negative - Negat roya POCT U BLD (test code = 3257) Trace Negative - Negati ve POCT U COLOR (test code = 3266) . POCT U APPEAR (test code = 3267) .. [facility] Urinalysis w/o Specific [id number] 14:26:00* Test Item Value Reference Range Interpretation Comme nts POCT PH U (test code = 3254) 5 mg/dl 5-8 POCT U LEUK EST (test code = 3263) trace Negative - Negative POCT U NIT (test code = 3262) neg Negative - Negati ve POCT U PROT (test code = 3259) trace Negative - Negat roya POCT U GLU (test code = 3256) neg Negative - Negati ve POCT U KETONE (test code = 3258) neg Negative - Neg ative POCT U BLD (test code = 3257) 50 Negative - Negati ve [facility] Urinalysis w/o Specific [id number] 14:26:00* Test Item Value Reference Range Interpretation Comme nts POCT PH U (test code = 3254) 5 mg/dl 5-8 POCT U LEUK EST (test code = 3263) trace Negative - Negative POCT U NIT (test code = 3262) neg Negative - Negati ve POCT U PROT (test code = 3259) trace Negative - Negat roya POCT U GLU (test code = 3256) neg Negative - Negati ve POCT U KETONE (test code = 3258) neg Negative - Neg ative POCT U BLD (test code = 3257) 50 Negative - Negati ve [facility] [id number] 14:25:00* Test Item Value Reference Range Interpretation Comme nts POCT PREG (test code = 1605) Positive On board controls acceptable with C Line (test code = 3574) Yes POCT PREG LOT # (test code = 3575) POCT PREG TEST DATE ( test code = 3576) [facility] [id number] 14:25:00* Test Item Value Reference Range Interpretation Comme nts POCT PREG (test code = 1605) Positive On board controls acceptable with C Line (test code = 3574) Yes POCT PREG LOT # (test code = 3575) POCT PREG TEST DATE ( test code = 3576) [facility] [id number] 20:05:00* Test Item Value Reference Range Interpretation Comme nts POCT PREG (test code = 1605) Negative On board controls acceptable with C Line (test code = 3574) Yes POCT PREG LOT # (test code = 3575) POCT PREG TEST DATE ( test code = 3576) [facility] [id number] 20:05:00* Test Item Value Reference Range Interpretation Comme nts POCT PREG (test code = 1605) Negative On board controls acceptable with C Line (test code = 3574) Yes POCT PREG LOT # (test code = 3575) POCT PREG TEST DATE ( test code = 3576) [facility] [id number] 20:05:00* Test Item Value Reference Range Interpretation Comme nts POCT PREG (test code = 1605) Negative On board controls acceptable with C Line (test code = 3574) Yes POCT PREG LOT # (test code = 3575) POCT PREG TEST DATE ( test code = 3576) [facility] [id number] 14:28:00* Test Item Value Reference Range Interpretation Comme nts POCT PREG (test code = 1605) Negative On board controls acceptable with C Line (test code = 3574) Yes POCT PREG LOT # (test code = 3575) POCT PREG TEST DATE ( test code = 3576) [facility] History and Physical Notes Date/Time Note Provider Source 2024-10-19 23:46:00 TRIAGE HISTORY & PHYSICAL IDENTIFYING DATA Ericka Dubose is 19 year old, /White, 38w3d, female with SHERMAN 10/30/2024, by Ultrasound. : 2005 Primary Care Physician: Rowan Hoskins CHIEF COMPLAINT Contractions HISTORY OF PRESENT ILLNESS Ericka Dubose is a 19 year old female presents in active labor with precipitous delivery in the triage CARE: Pvt patient of Dr Villarreal See Ob summary for details PAST OBSTETRIC HISTORY OB History Para Term AB Living 3 1 1 0 1 1 SAB IAB Ectopic Multiple Live Births 0 1 0 0 1 # Outcome Date GA Lbr Gordon/2nd Weight Sex Type Anes PTL Lv 3 Current 2 Term 10/30/21 39w4d 3260 g F NORMAL SPONT EPI N MAKAYLA Complications: Intraamniotic Infection 1 IAB 2018 6w0d PAST MEDICAL HISTORY Problem list: Patient Active Problem List Diagnosis Date Noted Labor, precipitous 10/19/2024 Normal in third trimester 07/26/2024 Right sciatic nerve pain 07/26/2024 Maternal varicella, non-immune 03/28/2024 History of pre-eclampsia in prior , currently 03/27/2024 Rubella non-immune status, antepartum 03/24/2021 Operations: Past Surgical History: Procedure Laterality Date FRACTURE SURGERY TONSILLECTOMY Past Medical History: Diagnosis Date Anemia 2017 not on meds Lactating adenoma CURRENT HEALTH STATUS Medications: Current Facility-Administered Medications Medication Dose Route Frequency Last Rate Last Admin carboprost (HEMABATE) injection 250 mcg 250 mcg Intramuscular Q2HPRN D5W-LR IV infusion 1,000 mL 1,000 mL IV Infusion TITRATE lactated ringers IV infusion 250 mL 250 mL IV Infusion PRN - SEE INSTRUCTIONS 75 mL/hr at 10/19/24 2311 1,000 mL at 10/19/24 2311 lidocaine 1% (PF) (XYLOCAINE) injection 0.3 mL 0.3 mL Infiltration PRN - SEE INSTRUCTIONS lidocaine 1% (XYLOCAINE) 10 mg/mL (1 %) injection 50 mL 50 mL Infiltration PRN - SEE INSTRUCTIONS methylergonovine (METHERGINE) injection 0.2 mg 0.2 mg Intramuscular Q4HPRN miSOPROStoL (CYTOTEC) tablet 200 mcg 200 mcg Rectal PRN sodium citrate-citric acid (BICITRA) 500-334 mg/5 mL solution 30 mL 30 mL Oral PRE-PROCEDURE ONCE tranexamic acid (CYKLOKAPRON) 1,000 mg/10 mL (100 mg/mL) 1,000 mg in NaCl 0.9% (NS) 250 mL IV Piggyback 1,000 mg IV Piggyback PRN Allergies and drug reactions: Patient has no known allergies. HOME MEDICATIONS Medications Prior to Admission Medication Sig Dispense Refill Last Dose valACYclovir (VALTREX) 500 mg tablet Take 1 tablet by mouth in the morning and 1 tablet in the evening. 60 tablet 2 Not Taking ferrous sulfate 325 mg (65 mg iron) tablet Take 1 tablet by mouth in the morning. 30 tablet 5 Taking aspirin 81 mg EC tablet Take 1 tablet by mouth in the morning. 30 tablet 8 Not Taking PNV 67-iron ps-folate no.1-dha (VITAFOL ULTRA) 29 mg iron- 1 mg-200 mg Cap Take 1 capsule by mouth in the morning. 60 capsule 6 Taking SOCIAL HISTORY Tobacco History: Social History Tobacco Use Smoking Status Never Smokeless Tobacco Never Tobacco Comments No smoke exposure Drug History: Social History Substance and Sexual Activity Drug Use No Alcohol History: Social History Substance and Sexual Activity Alcohol Use No FAMILY HISTORY Family History Problem Relation Age of Onset Thyroid Maternal Aunt Hypertension Paternal Grandmother No Significant Medical Problems Mother No Significant Medical Problems Father Heart Paternal Uncle MIs in 2 paternal uncles Heart Paternal Aunt Arthritis NoFHx Asthma NoFHx defects NoFHx Genetic NoFHx Breast Cancer NoFHx Colon Cancer NoFHx Ovarian Cancer NoFHx Uterine Cancer NoFHx Cancer NoFHx Depression NoFHx Psychiatry NoFHx Diabetes NoFHx High cholesterol NoFHx Mental retardation NoFHx Neurological NoFHx Osteoporosis NoFHx REVIEW OF SYSTEMS General: negative Constitutional: negative Eyes: negative ENT/Mouth: negative Cardiovascular: negative Respiratory: negative Gastrointestinal:negative Genitourinary: As above Musculoskeletal: negative Skin/breast: negative Neurological: negative Psychiatric: negative Endocrine: negative Hemat/Lymph: negative Allergic/Immuno:none VITAL SIGNS BP: (158)/(101) Temp: [36.9 ?C (98.4 ?F)] Temp source: Oral (10/19 2218) Pulse: [99] Resp: [22] SpO2: [100 %] Height: [157.5 cm (5' 2")] Weight: [76.7 kg (169 lb)-77 kg (169 lb 11.2 oz)] BMI (calculated): [30.91-31.04] PHYSICAL EXAMINATIONS Gen: alert and oriented, well appearing, no distress CV: RRR Resp: normal work of breathing Abd: gravid, soft, NTTP Ext: no calf tenderness or edema REVIEW OF LABORATORY, PATHOLOGY, AND RADIOLOGY DATA Lab results: Type & Screen HIV Hep B Syphilis Chlamydia ABO & RH Date Value Ref Range Status 08/14/2024 O POSITIVE Final No results found for: "HIVMULTIPLEX" No components found for: "HBSHBSAG" Syphilis IgG/IgM Date Value Ref Range Status 03/27/2024 Non-reactive Non-reactive Final C. trachomatis Nucleic Acid Date Value Ref Range Status 03/27/2024 Negative Negative Final IAT Date Value Ref Range Status 08/14/2024 Negative Final Varicella Rubella Glucose Group B Strep CBC VZV IgG antibody Date Value Ref Range Status 03/27/2024 Equivocal Negative Final Rubella screen IgG Date Value Ref Range Status 03/27/2024 Equivocal Negative Final GLUC 1 HR Date Value Ref Range Status 10/09/2024 146 120 - 170 mg/dL Final No results found for: "CGBS" HGB Date Value Ref Range Status 10/19/2024 11.1 (L) 11.6 - 15.0 g/dL Final HCT Date Value Ref Range Status 10/19/2024 34.7 (L) 35.7 - 45.2 % Final PLT Date Value Ref Range Status 10/19/2024 328 166 - 358 10*3/?L Final Placenta Accreta Screening Prior ? : No Prior Uterine Surgery?: No Placenta low lying/previa in current ? : No Screening outcome: A positive screening outcome indicates a history of prior delivery or prior uterine surgery, AND the presence of either a placenta low lying/previa or ultrasound suspicion of PASD in the current . Negative screening. Active Hospital Problems Diagnosis Date Noted Labor, precipitous 10/19/2024 Resolved Hospital Problems No resolved problems to display. Present on Admission: Labor, precipitous ASSESSMENT AND PLAN Ericka Dubose is a 19 year old at 38w3d who presented in active labor and precipitously delivered See delivery note Yulisa Al MD [facility] Notes Date/Time Note Provider Source 2024-10-20 19:43:56 Problem: Discharge Planning Goal: Effective communication Outcome: Progressing as expected Problem: Pain Goal: Control of pain at or below patient's documented comfort goal Outcome: Progressing as expected Goal: Reduction in pain sensation Outcome: Progressing as expected Problem: Breast-feeding - Ineffective Goal: Effective breast-feeding Outcome: Progressing as expected Problem: Falls, Risk of Goal: Absence of falls Outcome: Progressing as expected Problem: Discharge Planning - Goal: Adequate for discharge Outcome: Progressing as expected Goal: Mood stable Outcome: Progressing as expected Problem: Bleeding, Risk of Goal: Absence of impaired coagulation signs and symptoms Outcome: Progressing as expected Goal: Absence of active bleeding Outcome: Progressing as expected Problem: Infection Risk Goal: Absence of infection Outcome: Progressing as expected [employer]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 [facility] 2024-10-20 18:06:31 Problem: Discharge Planning Goal: Effective communication Outcome: Progressing as expected Problem: Pain Goal: Control of pain at or below patient's documented comfort goal Outcome: Progressing as expected Goal: Reduction in pain sensation Outcome: Progressing as expected Problem: Breast-feeding - Ineffective Goal: Effective breast-feeding Outcome: Progressing as expected Problem: Falls, Risk of Goal: Absence of falls Outcome: Progressing as expected Problem: Discharge Planning - Goal: Adequate for discharge Outcome: Progressing as expected Goal: Mood stable Outcome: Progressing as expected Problem: Bleeding, Risk of Goal: Absence of impaired coagulation signs and symptoms Outcome: Progressing as expected Goal: Absence of active bleeding Outcome: Progressing as expected Problem: Infection Risk Goal: Absence of infection Outcome: Progressing as expected [facility] Priscila Ko RN [facility] 2024-10-20 00:18:13 DELIVERY BY SPONTANEOUS VAGINAL DELIVERY Delivery Date: 10/19/2024 Delivery Time: 10:31 PM Delivery Summary The patient was admitted to the Labor & Delivery unit fin active labor with precipitous delivery Delivery Physician: Yulisa Al MD Intrapartum Anesthesia/Analgesia: None Mode of Delivery: Delivery of rao fetus with cephalic presentation Fetus Spontaneous cephalic vaginal delivery by RN assist. RN reports delviery uncomplicated with no nuchal cord or difficulty delivery the shoulders Placenta delivered shortly afterwards. A normal, female was delivered. I examined patient's perineum and no lacerations were visualized Uterus was well contracted and below the umbilicus Placenta examined- appeared complete and intact Fourth Stage Fourth stage of labor was managed by uterine massage with abdominal hand and infusion IO units of pitocin IM EBL:See QBL Complications: None Weight: 3050 g 1 Minute 5 Minute 10 Minute Totals: 9 9 Yulisa Al MD [facility] 2024-10-19 23:37:22 Problem: Discharge Planning Goal: Adequate for discharge Outcome: Progressing as expected Goal: Bilirubin within specified parameters Outcome: Progressing as expected Goal: Knowledge of discharge procedure Outcome: Progressing as expected Goal: Knowledge of infant care Outcome: Progressing as expected Problem: Discharge Planning Goal: Effective communication Outcome: Progressing as expected Problem: Pain Goal: Control of pain at or below patient's documented comfort goal Outcome: Progressing as expected Goal: Reduction in pain sensation Outcome: Progressing as expected Problem: Breast-feeding - Ineffective Goal: Effective breast-feeding Outcome: Progressing as expected Problem: Falls, Risk of Goal: Absence of falls Outcome: Progressing as expected Problem: Discharge Planning - Goal: Adequate for discharge Outcome: Progressing as expected Goal: Mood stable Outcome: Progressing as expected Problem: Bleeding, Risk of Goal: Absence of impaired coagulation signs and symptoms Outcome: Progressing as expected Goal: Absence of active bleeding Outcome: Progressing as expected Problem: Infection Risk Goal: Absence of infection Outcome: Progressing as expected [facility] 2024-10-19 22:18:35 Patient arrived ambulatory to ED c/o 2.5-3 minutes apart. contractions that started tonight. Dr. Villarreal. . [facility] Arabella Caceres RN [facility] 2024-10-14 09:30:00 Age: [age] year old GA: 37w5d -Doing well -Irregular contractions: Declined SVE -Right sciatic pain: last saw physical therapy on 09/11/24 -Anemia: On iron -await spontaneous labor -1 hour abnormal: Hemoglobin A1c 4.8. 3-hour GTT wnl - HSV I IgG positive: Valtrex ordered. Will pick up and delivery driver the prescription today -GBS negative on 10-07-24 -Daily kick counts and labor precautions given -RTC in 1 wk for PN [facility] 2024-10-09 08:00:00 Images from the original note were not included. Loaded pt w 100gm orange glucola, no issues. Draw time: 0949, 1049, 1149 Venipuncture collection performed by clean technique on the left anticubitus. Total of 1 attempts were made. Slight pressure and a bandage/dressing were applied to the site(s). The patient experienced no complications. The following specimens were processed according to instructions and sent to [facility] laboratories per lab order on 10/09/2024 : LT BLUE SST 1 RED LAV 1 PPT DK GREEN (LiHep) DK GREEN (SodH) FALL DK BLUE (K2) DK BLUE (S) ACD Blood Culture NIPT/NTD [facility] 2024-10-09 08:00:00 Images from the original note were not included. Venipuncture collection performed by clean technique on the left anticubitus. Total of 1 attempts were made. Slight pressure and a bandage/dressing were applied to the site(s). The patient experienced no complications. The following specimens were processed according to instructions and sent to [facility] laboratories per lab order on 10/09/2024 : LT BLUE SST 1 RED LAV PPT DK GREEN (LiHep) DK GREEN (SodH) FALL DK BLUE (K2) DK BLUE (S) ACD Blood Culture NIPT/NTD [facility] 2024-10-09 08:00:00 Images from the original note were not included. Venipuncture collection performed by clean technique on the left anticubitus. Total of 1 attempts were made. Slight pressure and a bandage/dressing were applied to the site(s). The patient experienced no complications. The following specimens were processed according to instructions and sent to [facility] laboratories per lab order on 10/09/2024 : LT BLUE SST 1 RED LAV PPT DK GREEN (LiHep) DK GREEN (SodH) FALL DK BLUE (K2) DK BLUE (S) ACD Blood Culture NIPT/NTD [facility] 2024-10-09 08:00:00 Images from the original note were not included. Venipuncture collection performed by clean technique on the left anticubitus. Total of 1 attempts were made. Slight pressure and a bandage/dressing were applied to the site(s). The patient experienced no complications. The following specimens were processed according to instructions and sent to [facility] laboratories per lab order on 10/09/2024 : LT BLUE SST 1 RED LAV PPT DK GREEN (LiHep) DK GREEN (SodH) FALL DK BLUE (K2) DK BLUE (S) ACD Blood Culture NIPT/NTD [facility] 2024-10-07 14:15:00 Age: [age] year old GA: 36w5d -Doing well -Irregular contractions: Declined SVE -Right sciatic pain: last saw physical therapy on 09/11/24 -Anemia: On iron -await spontaneous labor -1 hour abnormal: Hemoglobin A1c 4.8. 3-hour GTT not completed yet. - HSV I IgG positive: Valtrex ordered This reviews what Dr. Villarreal talked about at your 36 week talk: 1. Go to Labor and Delivery when your contractions are 5-7 minutes apart and you have been able to time them for an hour. If you live more than 30 minutes from the hospital, then go when they are 10 minutes apart and you have been able to time them for an hour. 2. BUT, there are 4 reasons to go to Labor and Delivery REGARDLESS of what else is happening, whether you are jesenia or not: 1. If your water breaks - - - it may be a gush or a constant trickle. If you are not sure, always come in to be checked. 2. Bleeding like your period. 3. If your baby's movements are less than 10 in an hour. If you are concerned this might be the case, drink a tall glass of cold fluids, lay down on your side on the couch or your bed and see how long it takes to note 10 movements - if less than 10, this needs to be evaluated immediately. 4. Contractions or Pain that is continuous. Normal labor contractions last only 45 seconds - 1 minute. Cephalic presentation GC/CT and GBS obtained, CBC ordered Zika precautions reviewed Contraception PP: Condoms Delivery consent signed today RTC in 1 wk for PN [facility] 2024-09-23 08:30:00 Age: [age] year old GA: 34w5d ASSESSMENT: Ericka Dubose is a 19 year old at 34w5d who presents for routine visit. Patient Active Problem List Diagnosis Rubella non-immune status, antepartum History of pre-eclampsia in prior , currently Maternal varicella, non-immune Right sciatic nerve pain PLAN 1. Normal in third trimester 2. 34 weeks gestation of - POCT Urinalysis w/o Specific [place]- negative glucose and protein 3. Abnormal maternal glucose tolerance, antepartum 1 hr gtt- abnormal- 141, Hgb A1c- 4.8. Pt state she has not had the time to get the 3 hrs gtt, plans to do this tomorrow 4. Need for RSV vaccination - RSV, Bivalent, Protein Subunit RSVpreF, Diluent Reconstituted, 0.5 mL, PF (Abrysvo) 5. Herpes simplex type 1 antibody positive - valACYclovir (VALTREX) 500 mg tablet; Take 1 tablet by mouth in the morning and 1 tablet in the evening. Dispense: 60 tablet; Refill: 2 Rx sent for suppressive, pt aware to start next week Pt reassured with - Nitrazine test - negative, no abnormal d/c or bleeding noted. Bladder training recommended Discussed weight gained from last visit- (5 Ibs)- Healthy diet and walks encouraged. She verbalized understanding --All questions answered RTC with Dr. Villarreal in 2 weeks or herbert Pope DNP, MANAGER ENVIRONMENTAL [facility]ALTH[facility] 09/23/2024 at 9:03 AM [facility] 2024-09-09 15:00:00 Age: [age] year old GA: 32w5d -Doing well -Right sciatic pain: followed by physical therapy -Anemia: On iron -28 week labs and serologies within normal limits except for anemia and abnormal 1 hour, 3-hour GTT have not been completed yet. Advised patient to get it done soon. -Patient desires to await spontaneous labor - 3rd trimester teaching done- reviewed S/S of PTL (contractions, leakage of fluid and Vaginal bleeding) and also Kick Counts. Also dicussed Ashe-Amor, pelvic and lower back pains- expectations and differenced with S/S of PTL She plans to breast fed BC options reviewed- opted for condoms Vessel Traffic Officer: Screened pediatrics Encourage patient to bring in wishes if she has any. -Follow-up in 2 weeks for visit with HOTEL OR MOTEL MANAGER -Follow-up in 4 weeks for visit with Villarreal [facility] 2024-08-30 09:15:00 Age: [age] year old GA: 31w2d ASSESSMENT: Ericka Dubose is a 19 year old at 31w2d who presents for routine visit. Patient Active Problem List Diagnosis Rubella non-immune status, antepartum History of pre-eclampsia in prior , currently Maternal varicella, non-immune Normal in second trimester Right sciatic nerve pain PLAN 1. Normal in third trimester 2. 31 weeks gestation of - POCT Urinalysis w/o Specific [place]- negative protein and glucose 3. Maternal varicella, non-immune May vaccinate PP Result equivocal and with previous testing. 4. Rubella non-immune status, antepartum May vaccinate PP Result equivocal and with previous testing. 5. History of pre-eclampsia in prior , currently No sign today, denies Sx 6. Need for Tdap vaccination - TDAP VACCINE, >10 YRS, IM 7. Right sciatic nerve pain Pt states sxs have improved with 3 sessions of PT and will continue as recommended. 8. Herpes simplex type 1 antibody positive Discussed result with pt, denies previous diagnosis or infection Informed pt of plan for suppressive therapy from 35-36 weeks unless clinically indicated 9. Abnormal maternal glucose tolerance, antepartum 1hr gtt- 140- Hgb A1c- 4.8 Pt will schedule 3 hrs gtt as recommended 10. Anemia of mother in , antepartum Continue oral iron -Reviewed with patient [facility] Labor precautions reviewed with patient 1. If your water breaks(gush or a constant trickle). 2. Bleeding like your period. 3. If your baby's movements are less than 10 in an hour. 4. Contractions or pain that is continuous. She verbalized understanding --All questions answered RTC with Dr. Villarreal in 2 weeks or prn Janny Pope DNP, MANAGER ENVIRONMENTAL HEALTH- 08/30/2024 at 10:04 AM T [facility] 2024-08-14 08:00:00 Loaded pt w 50gm lemon chenega glucola, no issues. Draw time: 923 T [facility] 2024-08-14 08:00:00 Images from the original note were not included. Venipuncture collection performed by clean technique on the left anticubitus. Total of 1 attempts were made. Slight pressure and a bandage/dressing were applied to the site(s). The patient experienced no complications. The following specimens were processed according to instructions and sent to [facility] laboratories per lab order on 08/14/2024 : LT BLUE SST 3 RED 1 LAV 2 PPT DK GREEN (LiHep) DK GREEN (SodH) FALL DK BLUE (K2) DK BLUE (S) ACD Blood Culture NIPT/NTD [facility] 2024-07-26 15:00:00 Age: [age] year old GA: 26w2d -Doing well -Right sciatic pain: Sciatic exercises discussed. Referral to physical therapy placed. -Maternal serum AFP negative -28 week labs and serologies ordered, pending completion - 3rd trimester teaching done- reviewed S/S of PTL (contractions, leakage of fluid and Vaginal bleeding) and also Kick Counts. Also dicussed Ashe-Amor, pelvic and lower back pains- expectations and differenced with S/S of PTL -Follow-up in 4 weeks for visit with HOTEL OR MOTEL MANAGER -Follow-up in 6 weeks for visit with Villarreal [facility] 2024-06-26 16:15:00 Age: [age] year old GA: 22w0d ASSESSMENT: Ericka Dubose is a 19 year old at 22w0d who presents for routine visit. Patient Active Problem List Diagnosis Rubella non-immune status, antepartum History of pre-eclampsia in prior , currently Maternal varicella, non-immune PLAN 1. Normal in second trimester 2. 22 weeks gestation of - POCT Urinalysis w/o Specific [place]- negative protein and glucose - HIV 1/2 Ag-Ab with Reflex; Future - Workup, Blood Bank; Future - Cbc with Diff; Future - Glucose 1 Hour Post Prandial; Future - HSV 1 and 2 Glycoprotein G IgG; Future - ADC or [place] Only - Rpr; Future - CONSULT MATERNAL MEDICINE ULTRASOUND Multiple Gestation: No; Preferred Location: [place] 3. History of pre-eclampsia in prior , currently Pt has not started on low dose aspirin as recommended, states she will start today. Reviewed reason and importance of the medication 4. Maternal varicella, non-immune Will vaccinate PP 5. Rubella non-immune status, antepartum Will vaccinate PP -Anatomy US - Result from 06/13/24 reviewed- EFW- 22 %ile, placenta posterior, no Previa. - The biometry was consistent with the dates provided. No obvious abnormalities noted. - The exam is limited by the position. Referral placed for f/u on suboptimal views. F/u with Dr. Villarreal in 4 weeks or prn Janny Pope DNP, MANAGER ENVIRONMENTAL HEALTH-[facility] 06/26/[facility]24 at 4:29 [facility] 14:30:00 Age: [age] year old GA: 18w1d Transfer care from [place] [facility] - NOB labs wnl except for Rubella and VZV equivocal - Panorama low risk female - MsAFP neg - anatomy scan scheduled for 06/13/24 New OB labs today. No complaints. Discussed do's and don'ts of , safe foods, safe medications. Reviewed Zika virus precautions. I discussed the call schedule and that I might not be the physician delivering her. I discussed I deliver my patients at [facility]. Expectations for weight gain this include 15-25 pounds. Encouraged to call if have any additional questions or concerns. Discussed with patient that she can have HEALTHY support with her during her delivery (which is subject to change depends on the COVID pandemic) Next visit in 4 week for PN with HOTEL OR MOTEL MANAGER Follow-up in 8 wks for PN with Villarreal [facility] 2024-05-02 09:12:07 Patient called and scheduled. Carlee Ritchie [facility] 2024-05-01 08:34:14 Called patient, no answer, left message to call back to schedule. [facility] 2024-04-30 09:36:09 Ericka Dubose is a 18 year old female Pt calling to see if she can switch providers to Dr. Villarreal She wants to deliver her baby in [place]. Rita Mcgill [facility] 2024-04-10 15:10:57 Patient informed [facility] orders placed, number to department given to patient. Calista Ibrahim LVN [facility] 2024-04-10 14:49:23 Usg ordered SHANNON Mora 04/10/2024 2:49 PM [facility] 2024-04-10 11:32:43 Copied from [facility] #[id number]. Topic: Clinical - Referral >> Apr 10, 2024 11:31 AM Patient Interface Developer wrote: Pt is requesting referral for ultrasound, medicaid is active. Please call [phone] (home) ENT JOÃO Cheney [facility]
--- NOTE | 2025-02-28 10:41 | ER ---
Nurse's Notes [facility] Name: Ericka Dominique Age: 19 yrs Sex: Female : 2005 Arrival Date: 02/28/2025 Time: 10:06 Bed IW5 Private MD: Diagnosis: Ytnz-ndwa-qla-mouth disease Presentation: 02/28 10:29 Chief complaint: Patient states: Rash to hands and throat X 1 week. Coronavirus screen: ld1 At this time, the client does not indicate any symptoms associated with coronavirus-19. Ebola Screen: No symptoms or risks identified at this time. Initial Sepsis Screen: Does the patient meet any 2 criteria? No. Patient's initial sepsis screen is negative. Does the patient have a suspected source of infection? No. Patient's initial sepsis screen is negative. Risk Assessment: Do you want to hurt yourself or someone else? Patient reports no desire to harm self or others. Onset of symptoms was February 28, 2025 at 10:30. 10:29 Method Of Arrival: Ambulatory ld1 10:29 Acuity: ADEN 4 ld1 Triage Assessment: 10:30 General: Appears in no apparent distress. comfortable, Behavior is calm, cooperative, ld1 appropriate for age. Pain: Denies pain. EENT: No signs and/or symptoms were reported regarding the EENT system. Neuro: Level of Consciousness is awake, alert, obeys commands, Oriented to person, place, time, situation. Cardiovascular: Capillary refill < 3 seconds Patient's skin is warm and dry. Respiratory: Airway is patent Respiratory effort is even, unlabored. GI: Abdomen is round non-distended. : No signs and/or symptoms were reported regarding the genitourinary system. Derm: Rash noted that is red, on right hand. Musculoskeletal: No signs and/or symptoms reported regarding the musculoskeletal system. Historical: - Allergies: 10:30 No Known Allergies; ld1 - Home Meds: 10:30 None [Active]; ld1 - PMHx: 10:30 Anemia; ld1 - Immunization history:: Adult Immunizations up to date. - Infectious Disease History:: Denies. - Social history:: Smoking status: Patient denies any tobacco usage or history of. - Family history:: not pertinent. Screenin:35 [facility] ED Fall Risk Assessment (Adult) History of falling in the last 3 months, ld1 including since admission No falls in past 3 months (0 pts) Confusion or Disorientation No (0 pts) Intoxicated or Sedated No (0 pts) Impaired Gait No (0 pts) Mobility Assist Device Used No (0 pt) Altered Elimination No (0 pt) Score/Fall Risk Level 0 - 2 = Low Risk Oriented to surroundings, Hourly rounding (assess needs \T\ fall precautionary measures) done. Abuse screen: Denies threats or abuse. Denies injuries from another. Nutritional screening: No deficits noted. Tuberculosis screening: No symptoms or risk factors identified. Assessment: 10:35 Reassessment: See triage assessment. ERP in triage assessing patient. ld1 Vital Signs: 10:29 BP 141 / 92; Pulse 78; Resp 18; Temp 97.5(TE); Pulse Ox 98% on R/A; Weight 68.04 kg; ld1 Height 5 ft. 2 in. ; Pain 0/10; 10:29 Body Mass Index 27.44 (68.04 kg, 157.48 cm) ld1 10:29 Pain Scale: Adult ld1 ED Course: 10:11 Patient arrived in ED. cj3 10:14 Bobby Brock MD is Attending Physician. rt 10:30 Triage completed. ld1 10:30 Arm band placed on right wrist. ld1 10:35 Patient has correct armband on for positive identification. ld1 10:35 No provider procedures requiring assistance completed. Patient did not have IV access ld1 during this emergency room visit. Administered Medications: No medications were administered Medication: 10:35 VIS not applicable for this client. ld1 Outcome: 10:35 Discharged to home ambulatory, ld1 10:35 Condition: stable 10:35 Discharge instructions given to patient, Instructed on discharge instructions, follow up and referral plans. Demonstrated understanding of instructions, follow-up care, 10:40 Discharge ordered by MD. rt 10:51 Patient left the ED. ld1 Signatures: Sara Atkins RN RN ld1 Bobby Brock MD MD rt Jess Pimentel cj3 Corrections: (The following items were deleted from the chart) 10:31 10:30 PMHx: None; ld1 ld1
--- NOTE | 2025-02-28 10:41 | EDPHYS ---
Physician Documentation [facility] Name: Ericka Dominique Age: 19 yrs Sex: Female : 2005 Arrival Date: 02/28/2025 Time: 10:06 Bed IW5 Private MD: ED Physician Bobby Brock HPI: 02/28 10:50 This 19 yrs old Female presents to ER via Ambulatory with complaints of Rash. rt 10:50 Patient presents to the ED with about 5 days of a rash to both fingers. States that her rt children have similar symptoms with rashes to the mouth, hands. Reports that they itch but denies cough, fever, chills, pain complaints, symptoms are mild in severity, no other aggravating or alleviating factors.. Historical: - Allergies: 10:30 No Known Allergies; ld1 - Home Meds: 10:30 None [Active]; ld1 - PMHx: 10:30 Anemia; ld1 - Immunization history:: Adult Immunizations up to date. - Infectious Disease History:: Denies. - Social history:: Smoking status: Patient denies any tobacco usage or history of. - Family history:: not pertinent. ROS: 10:50 Constitutional: Negative for fever, chills, and weight loss, ENT: Negative for injury, rt pain, and discharge, Cardiovascular: Negative for chest pain, palpitations, and edema, Respiratory: Negative for shortness of breath, cough, wheezing, and pleuritic chest pain, Abdomen/GI: Negative for abdominal pain, nausea, vomiting, diarrhea, and constipation, Neuro: Negative for headache, weakness, numbness, tingling, and seizure, 10:50 Skin: Positive for rash, Negative for cellulitis, Exam: 10:50 Constitutional: This is a well developed, well nourished patient who is awake, alert, rt and in no acute distress. Head/Face: Normocephalic, atraumatic. Chest/axilla: Normal chest wall appearance and motion. Nontender with no deformity. No lesions are appreciated. Cardiovascular: Regular rate and rhythm with a normal S1 and S2. No gallops, murmurs, or rubs. Normal PMI, no JVD. No pulse deficits. Respiratory: Lungs have equal breath sounds bilaterally, clear to auscultation and percussion. No rales, rhonchi or wheezes noted. No increased work of breathing, no retractions or nasal flaring. Abdomen/GI: Soft, non-tender, with normal bowel sounds. No distension or tympany. No guarding or rebound. No evidence of tenderness throughout. 10:50 ENT: No oropharyngeal lesions. 10:50 Skin: Vesicular rash noted to fingers of the left and right hands, no other rash noted. Vital Signs: 10:29 BP 141 / 92; Pulse 78; Resp 18; Temp 97.5(TE); Pulse Ox 98% on R/A; Weight 68.04 kg; ld1 Height 5 ft. 2 in. ; Pain 0/10; 10:29 Body Mass Index 27.44 (68.04 kg, 157.48 cm) ld1 10:29 Pain Scale: Adult ld1 MDM: 10:39 Medical Screening Exam initiated rt 10:50 Differential diagnosis: Coxsackievirus, herpangina, measles. Data reviewed: vital rt signs, nurses notes. Test considered but Not performed: Other Details Patient is fully vaccinated, rash does not have appearance of the measles rash, do not believe that testing is indicated. Counseling: I had a detailed discussion with the patient and/or guardian regarding the historical points, exam findings, and any diagnostic results supporting the discharge/admit diagnosis, the need for outpatient follow up, to return to the emergency department if symptoms worsen or persist or if there are any questions or concerns that arise at home. Administered Medications: No medications were administered Disposition Summary: 02/28/25 10:40 Discharge Ordered Notes: Location: Home rt Problem: new rt Symptoms: are unchanged rt Condition: Stable rt Diagnosis - Qxlk-sioh-tgn-mouth disease rt Followup: rt - With: Private Physician - When: 2 - 3 days - Reason: Discharge Instructions: - Discharge Summary Sheet rt - Rash, Adult rt Forms: - Medication Reconciliation Form rt - Antibiotic Education rt - Prescription Opioid Use rt - Patient Portal Instructions rt - Leadership Thank You Letter rt Signatures: Sara Atkins RN RN ld1 Bobby Brock MD MD rt Corrections: (The following items were deleted from the chart) 10:31 10:30 PMHx: None; ld1 ld1
[2025-02-28 10:56] VITALS: BP 141/92; TEMP 97.5; O2SAT 98
== END 2025-02-28 10:51 | disposition home or self-care (01) ==
LOC: ER 10:06
DX: B08.4 Enteroviral vesicular stomatitis with exanthem (principal)
CPT/HCPCS: 99282